=== PATIENT | male | born 1945 | race Hispanic/Latino ===

== ENCOUNTER 2017-04-20 21:12 | Inpatient (IN) | payer MEDICARE ==
[~2017-04-20] VITALS: Ht 175.3 cm; Wt 129.4 kg
[~2017-04-20 21:12] MED LIST: ASPIRIN81 MG PO; CARVEDILOL3.125 MG PO; CIPRO500 MG PO; FENOFIBRATE67 MG PO; LISINOPRIL10 MG PO; PLAVIX75 MG PO
[2017-04-20 21:24] VITALS: BP 113/70
[2017-04-20 21:30] VITALS: BP 113/70
[2017-04-20] MEDS ORDERED: ASPIRIN 81 MG CHEW TAB PO ONE (22:00)
[2017-04-20] MEDS ORDERED: MAALOX/LIDOCAINE/BENADRYL 120 ML BTL PO PRN (22:30)
[2017-04-20] MEDS ORDERED: ENOXAPARIN SODIUM INJ 100 MG/ML SYR SC SCH (22:30)
[2017-04-20 23:29] LABS: CREATINE KINASE MB 5.4 ng/mL (0.00-5.00); TROPONIN I 0.338 ng/mL (0-0.300)
[2017-04-21] VITALS (43 sets, daily range): BP systolic 89–129; BP diastolic 57–83
[2017-04-21] MEDS: MORPHINE SULFATE 2 MG/ML SYR IV PRN ×2 (01:07→13:37)
[2017-04-21 07:23] LABS: BASOPHILS % 0.6 % (0.0-1.0); EOSINOPHILS # (AUTO) 0.1 (0.0-0.4); EOSINOPHILS % 0.7 % (0.0-6.0); HEMATOCRIT 39.4 % (38.2-49.6); HEMOGLOBIN 13.2 g/dL (14.0-18.0); LYMPHOCYTES # (AUTO) 1.7 (1.0-3.2); LYMPHOCYTES % 24.4 % (18.0-39.1); MEAN CORPUSCULAR HEMOGLOBIN 29.5 pg (28-32); MEAN CORPUSCULAR HGB CONC 33.5 g/dL (31-35); MEAN CORPUSCULAR VOLUME 88.1 fL (81-99); MONOCYTES # (AUTO) 0.6 (0.2-0.8); MONOCYTES % 8.9 % (4.4-11.3); NEUTROPHILS # (AUTO) 4.6 (2.1-6.9); NEUTROPHILS % 64.8 % (38.7-80.0); PLATELET COUNT 158 x10e3/uL (140-360); RED BLOOD COUNT 4.47 x10e6/uL (4.3-5.7); RED CELL DISTRIBUTION WIDTH 13.5 % (11.7-14.4)
[2017-04-21 07:45] LABS: ALANINE AMINOTRANSFERASE 21 IU/L (0-55); ALBUMIN 3.9 g/dL (3.5-5.0); ALBUMIN/GLOBULIN RATIO 1.2 (0.8-2.0); ALKALINE PHOSPHATASE 46 IU/L (40-150); ANION GAP 10.4 mmol/L (8-16); BLOOD UREA NITROGEN 13 mg/dL (7-26); BUN/CREATININE RATIO 14 (6-25); CARBON DIOXIDE 28 mmol/L (22-29); CHLORIDE 105 mmol/L (98-107); CHOL/HDL RATIO 4.6 (3.9-4.7); CHOLESTEROL 152 MD/DL (0-199); CREATINE KINASE 385 IU/L (30-200); CREATININE, SERUM 0.95 mg/dL (0.72-1.25); EST GLOMERULAR FILTRATION RATE > 60 ML/MIN (60-); GLUCOSE 113 mg/dL (74-118); HDL CHOLESTEROL 33 MG/DL (40-60); LDL CHOLESTEROL 75 MG/DL (60-130); POTASSIUM 4.4 mmol/L (3.5-5.1); SODIUM 139 mmol/L (136-145); TRIGLYCERIDES 218 MG/DL (0-149)
[2017-04-21 08:00] LABS: TROPONIN I 2.806 ng/mL (0-0.300)
[2017-04-21 08:35] LABS: PARTIAL THROMBOPLASTIN TIME 34.9 seconds (23.8-35.5)
[2017-04-21 08:50] LABS: INR 1.14; PROTHROMBIN TIME 15.2 seconds (11.9-14.5)
[2017-04-21] MEDS: ASPIRIN 81 MG CHEW TAB PO SCH (08:57)
[2017-04-21] MEDS: NITROGLYCERIN 0.4 MG SUBL SL PRN ×2 (08:57→09:03)
[2017-04-21] MEDS: LISINOPRIL 10 MG TAB PO SCH (09:00)
[2017-04-21] MEDS ORDERED: FENOFIBRATE 145 MG TAB PO SCH (09:00)
[2017-04-21] MEDS: CARVEDILOL 3.125 MG TAB PO SCH ×2 (09:00→17:00)
[2017-04-21] MEDS ORDERED: NON-FORMULARY MEDICATION (Fenofibrate,Micronized (Fenofibrate) 160 MG) PO SCH (09:00)
[2017-04-21] MEDS: SODIUM CHLORIDE 0.9% 1000ML 1,000 ML IV SCH ×2 (09:05→19:00)
[2017-04-21] MEDS ORDERED: FENTANYL CITRATE/PF 100MCG/2 ML INJ ONE (09:45)
[2017-04-21] MEDS ORDERED: HEPARIN SOD (PORCINE) 1000 UNIT/ML 30ML ONE (09:45)
[2017-04-21] MEDS ORDERED: IOPAMIDOL 370 MG/ML 200 ML INFUS..BTL INJ ONE ×2 (09:46→10:50)
[2017-04-21] MEDS ORDERED: MIDAZOLAM HCL 2 MG/2 ML VIAL ONE (09:46)
[2017-04-21] MEDS ORDERED: HEPARIN SOD/SOD CHLORIDE 2,000 ML ONE (09:46)
[2017-04-21] MEDS ORDERED: LIDOCAINE HCL 2% LOCAL 20 ML VIAL ONE (09:46)
[2017-04-21] MEDS ORDERED: NITROGLYCERIN/D5W 200 MCG/ML 250 ML ONE (09:46)
[2017-04-21] MEDS ORDERED: SODIUM CHLORIDE 0.9% 1000ML 1,000 ML ONE (09:46)
[2017-04-21] MEDS ORDERED: BIVALIRUDIN 250 MG/VIAL IV ONE (10:21)
[2017-04-21] MEDS ORDERED: SODIUM CHLORIDE 0.9% 50ML 0 ML ONE (10:21)
--- NOTE | 2017-04-21 10:53 | History and Physical ---
CHIEF COMPLAINT: Chest pain. HISTORY OF PRESENT ILLNESS: Mr. Guerrero is a 71-year-old male with a history of hypertension, dyslipidemia, morbid obesity, coronary artery disease status post aortocoronary bypass with known occluded SALOMON to LAD and occluded SVG to RCA, status post SVG-to-OM drug-eluting stent PCI in 2015, who presents with crescendo angina pectoris. He was observed in a freestanding emergency department where initial set of enzymes was negative. EKG with right bundle-branch block. He was transferred for further evaluation. He was initiated on ACS protocol. In the hospital, additional sets of enzymes have ruled him in. He has had recurrent bouts of chest discomfort and some dynamic ST depressions in inferior and lateral leads for which the corn lab technician is being activated for expedited coronary angiography and possible intervention. All indications, alternatives, risks and benefits have been discussed extensively with the patient as well as family members. The patient agrees to proceed with this plan of care. REVIEW OF SYSTEMS: Negative, except as noted above. ALLERGIES: NO KNOWN DRUG ALLERGIES. PAST MEDICAL HISTORY: As per HPI. SOCIAL HISTORY: Negative times 3. PHYSICAL EXAMINATION VITAL SIGNS: Temperature 97.3, heart rate 60, respiratory rate 20, blood pressure 101/60. O2 sat is 96% on room air. GENERAL: No acute distress. Alert. Active. NECK: No JVD. CHEST: Clear to auscultation. CARDIOVASCULAR: Regular rate and rhythm, normal S1 and S2. ABDOMEN: Soft. Nontender and nondistended. Obese. EXTREMITIES: Trace edema of bilateral lower extremities. LABS: Reviewed. Creatinine at [facility] ER was 1.5, now down to 0.95. Serial enzymes peaking at CK-MB 42, CK 385, troponin I 2.8. TSH within normal limits. LDL 75, HDL 33, total cholesterol 152, triglycerides 218. Potassium 4.4, bicarbonate 28, sodium 139. INR 1.1. Hemoglobin 13, white blood cells 7, platelets 158. EKG as described above. Chest x-ray shows no acute thoracic abnormality with mediastinal clips and sternotomy sutures noted. ASSESSMENT: High-risk xzh-BJ-kvlomqpew myocardial infarction in a patient with known coronary artery disease, prior bypass, prior occluded grafts and prior stent, saphenous vein graft to obtuse marginal. RECOMMENDATIONS: Proceed with expedited coronary angiography and/or graft intervention. Further recommendations to follow. Continue aggressive medical optimization for ACS, on aspirin and nitroglycerin p.r.n., carvedilol and lisinopril. Further recommendations to follow. Echo ordered and pending. IV fluids initiated. The patient is currently n.p.o. Job#: [id number]
[2017-04-21] MEDS ORDERED: ADENOSINE 3MG/1ML 30ML VIAL ONE (11:12)
[2017-04-21] MEDS ORDERED: ADENOSINE 6MG/2ML 1 ML ONE (11:12)
[2017-04-21] MEDS ORDERED: SODIUM CHLORIDE 0.9% 50ML 50 ML ONE (11:13)
[2017-04-21] MEDS ORDERED: SODIUM CHLORIDE 0.9% 250ML 250 ML ONE (11:22)
[2017-04-21] MEDS ORDERED: ASPIRIN 325 MG TAB ONE (11:36)
[2017-04-21] MEDS ORDERED: CLOPIDOGREL BISULFATE 75 MG TAB ONE (11:36)
[2017-04-21] MEDS ORDERED: NITROGLYCERIN/D5W 200 MCG/ML 250 ML IV STA (12:00)
[2017-04-21] MEDS ORDERED: ACETAMINOPHEN 325 MG TAB PO PRN (12:00)
[2017-04-21] MEDS ORDERED: ONDANSETRON HCL INJ 2 MG/ML VIAL IV PRN (12:00)
[2017-04-21] MEDS ORDERED: MORPHINE SULFATE 4 MG/ML SYR IV PRN (12:00)
[2017-04-21] MEDS ORDERED: MORPHINE SULFATE 5 MG/ML VIAL IV PRN (12:15)
[2017-04-21] MEDS ORDERED: HEPARIN SOD (PORCINE) 5,000 UNIT/ML VIAL IV ONE (12:30)
[2017-04-21] MEDS: HEPARIN 25,000U/0.45% NS 250ML 1,000 UNIT in SODIUM CHLORIDE 0.9% 250ML 0 ML IV SCH (16:00)
[2017-04-22] VITALS (93 sets, daily range): BP systolic 73–135; BP diastolic 44–85
[2017-04-22] MEDS: SODIUM CHLORIDE 0.9% 1000ML 1,000 ML IV SCH ×2 (04:32→14:35)
[2017-04-22 05:44] LABS: BASOPHILS % 0.5 % (0.0-1.0); EOSINOPHILS % 0.3 % (0.0-6.0); HEMATOCRIT 38.3 % (38.2-49.6); HEMOGLOBIN 13.1 g/dL (14.0-18.0); LYMPHOCYTES # (AUTO) 1.3 (1.0-3.2); LYMPHOCYTES % 15.3 % (18.0-39.1); MEAN CORPUSCULAR HEMOGLOBIN 29.9 pg (28-32); MEAN CORPUSCULAR HGB CONC 34.2 g/dL (31-35); MEAN CORPUSCULAR VOLUME 87.4 fL (81-99); MONOCYTES # (AUTO) 0.9 (0.2-0.8); MONOCYTES % 10.8 % (4.4-11.3); NEUTROPHILS # (AUTO) 6.3 (2.1-6.9); NEUTROPHILS % 72.6 % (38.7-80.0); PLATELET COUNT 124 x10e3/uL (140-360); RED BLOOD COUNT 4.38 x10e6/uL (4.3-5.7); RED CELL DISTRIBUTION WIDTH 13.7 % (11.7-14.4)
[2017-04-22 06:04] LABS: ANION GAP 13.8 mmol/L (8-16); BLOOD UREA NITROGEN 12 mg/dL (7-26); BUN/CREATININE RATIO 15 (6-25); CALCIUM 8.5 mg/dL (8.4-10.2); CARBON DIOXIDE 24 mmol/L (22-29); CHLORIDE 102 mmol/L (98-107); EST GLOMERULAR FILTRATION RATE > 60 ML/MIN (60-); GLUCOSE 115 mg/dL (74-118); POTASSIUM 3.8 mmol/L (3.5-5.1); SODIUM 136 mmol/L (136-145)
[2017-04-22] MEDS: ASPIRIN 81 MG CHEW TAB PO SCH (08:44)
[2017-04-22] MEDS: LISINOPRIL 10 MG TAB PO SCH (08:47)
[2017-04-22] MEDS: CLOPIDOGREL BISULFATE 75 MG TAB PO SCH (09:00)
[2017-04-22] MEDS: ISOSORBIDE MONONITRATE 30 MG TAB CR PO SCH (09:00)
[2017-04-22] MEDS: CARVEDILOL 3.125 MG TAB PO SCH ×2 (09:00→17:00)
--- NOTE | 2017-04-22 10:53 | Progress Note ---
DATE: April 22, 2017 CARDIOLOGY PROGRESS NOTE SUBJECTIVE: Had epigastric discomfort overnight. Now minimal, 2/. No other complaints. OBJECTIVE VITALS: Temperature at 97.4, heart rate 65, respiratory rate 16, blood pressure 102/68. O2 sat 96% on room air. GENERAL: No acute distress. Alert. NECK: No JVD. CHEST: Clear to auscultation. CARDIOVASCULAR: Regular rate and rhythm. Normal S1 and S2. No S3, no S4. ABDOMEN: Soft. EXTREMITIES: Trace edema. CARDIOVASCULAR MEDICATIONS 1. On IV heparin. 2. On nitroglycerin drip. 3. Aspirin 81 mg daily. 4. Fenofibrate 145 mg daily. 5. Carvedilol 12.5 mg b.i.d. 6. Lisinopril 5 mg daily. 7. Atorvastatin 80 mg nightly. 8. Clopidogrel 75 mg daily. STUDIES: White blood cells 8.6, hemoglobin 13.1, platelets 124. INR 1.1. PTT 46. Sodium 136, potassium 3.8, chloride 102, bicarbonate 24, BUN 12, creatinine 0.8. Glucose 115. Calcium 8.5. Yesterday's most recent enzymes were CK 385, CK-MB 42, and troponin I was 2.8. Today's cardiac enzymes are pending. Triglycerides were 218, total cholesterol 152, LDL 75, HDL 33 with TSH 2.5. TELEMETRY: Sinus rhythm with occasional PACs. ASSESSMENT 1. Ebs-OD-lomhuislw myocardial infarction in the setting of occluded saphenous vein graft to obtuse marginal, status post percutaneous coronary intervention, however with severe distal outflow thrombus burden preintervention, which persists post intervention. 2. Morbid obesity. 3. Mixed dyslipidemia. 4. Hypertension. RECOMMENDATIONS: Keep in ICU today. Continue IV heparin and wean nitroglycerin. Add Imdur. Continue dual antiplatelet therapy and atorvastatin. Discontinue fenofibrate. Job#: [id number]
[2017-04-22] MEDS: HEPARIN 25,000U/0.45% NS 250ML 1,000 UNIT in SODIUM CHLORIDE 0.9% 250ML 0 ML IV SCH (12:00)
[2017-04-22] MEDS ORDERED: HEPARIN 25,000U/0.45% NS 250ML 250 ML ONE (13:08)
[2017-04-22 13:23] LABS: CREATINE KINASE MB 135.8 ng/mL (0.00-5.00)
[2017-04-22 13:26] LABS: TROPONIN I 15.782 ng/mL (0-0.300)
--- NOTE | 2017-04-22 13:45 | Operative Report ---
DATE OF PROCEDURE: April 20, 2017 PROCEDURES PERFORMED 1. Left heart catheterization. 2. Selective coronary angiography. 3. Selective graft to obtuse marginal angiography. 4. Percutaneous coronary intervention of saphenous vein graft to obtuse marginal as well as Pronto manual thrombectomy of the saphenous vein graft to obtuse marginal as well as adenosine intracoronary via the saphenous vein graft to obtuse marginal administration. 5. Right common femoral artery 6-Citizen [place] Angio-Seal closure. PROCEDURE INDICATIONS: Rhb-IX-gkjntyaeg myocardial infarction with refractory angina in spite of medical therapy. PROCEDURE ESTIMATED BLOOD LOSS: Less than 15 mL. PROCEDURE COMPLICATIONS: None. However, high thrombus burden outflow problem with LINH-0 flow in the coronary cowlitz vessels distal to the graft preprocedure with significant residual high thrombus burden post procedure in spite of maneuvers performed was observed. PROCEDURE SUMMARY: After consent was obtained, the patient was prepped and draped in a sterile fashion. Right femoral site was locally infiltrated with 2% lidocaine. Access was obtained with the micropuncture kit. A short 6-Citizen [place] sheath was placed. All catheters were railed with a leading wire to their respective positions. A JL5, 6-Citizen [place] catheter was used for engagement of the left coronary artery. A JR4, 6-Citizen [place] catheter was used for engagement of the right coronary artery as well as SVG to OM. A 6-[place]izen [place] JR4 guide catheter with no side-holes was used for the interventional portion of this procedure along with EV3 SpiderFX 5-mm embolic protection device, [employer] Synergy 3.0 x 24 drug-eluting stent, a Runthrough wire as well as Pronto thrombectomy catheter were used for the interventional portion of the procedure. Heparin was administered to maintain ACT within therapeutic range. Aspirin and clopidogrel preload were also administered. ANGIOGRAPHIC FINDINGS 1. Left main has luminal irregularities and gives LAD and circumflex. 2. LAD has mild disease, less than 30%, throughout the proximal to mid portion. It gives diagonals and septal perforators of small caliber. The apical-most segment of the distal LAD is 100% occluded. This was described to be occluded on previous angiography in 2015. Of note, collaterals from the LAD to the septal perforators fill the RPDA. These are grade-3 collaterals. 3. The circumflex gives a high takeoff obtuse marginal, which has small to medium caliber and an area of mid-portion 30% stenosis. The circumflex itself is occluded 100% distal to this high takeoff of the 1st obtuse marginal. 4. The right coronary artery is 100% occluded with known chronic total occlusion. 5. The SALOMON to LAD is occluded per 2015 cardiac catheterization, and a graft to RCA is also described to be occluded on previous catheterization. 6. SVG to obtuse marginal was dilated and was noted to have a 95% mid stenosis with LINH-1 flow at the proximal to mid graft level. The distal portion of the graft was, however, 100% occluded with high thrombus burden and contrast staining in the myocardium. Due to active persistent chest pain, it was felt that attempted intervention of the graft was worth pursuing, and this was performed as follows: SpiderFX 5.0 embolic protection device was deployed distal to the area of stenosis. Primary stenting with a Synergy 3.0 x 24 drug-eluting stent was deployed in the area of critical graft stenosis. After retrieval of the embolic protection device, Pronto thrombectomy was performed on various passages, particularly towards the distal segment of the graft and into the proximal portion of the cowlitz vessel. In addition, adenosine intracoronary was administered in various doses of 100 mcg. Preprocedure mid-graft stenosis was 95%. Post procedure was less than 30% residual stenosis. Preprocedure LINH flow across the graft was LINH 1 as well as LINH 0 in the cowlitz OM vessel. Post procedure LINH flow remained LINH 1 with LINH 0 and dye staining in the cowlitz vessel in the setting of high thrombus burden. At this point, it was felt that additional interventional options were exhausted, and continued medical therapy with heparin, aspirin and Plavix was pursued in the intensive care unit. The procedure was, therefore, completed. Angio-Seal closure of the right common femoral artery was applied. CONCLUSIONS: Saphenous vein graft to obtuse marginal percutaneous coronary intervention with suboptimal result in the setting of high thrombus burden noted preprocedure and in spite of manual thrombectomy with adenosine intracoronary, poor outflow limited results. RECOMMENDATIONS: Pursue additional dual antiplatelet therapy and heparin-based therapy. Nitroglycerin drip to titrate for anginal control. Beta katie, statin, ICU care. Overall guarded prognosis. Job#: [id number]
[2017-04-22 16:47] LABS: CREATINE KINASE MB 89.7 ng/mL (0.00-5.00)
[2017-04-22 16:49] LABS: TROPONIN I 21.538 ng/mL (0-0.300)
[2017-04-22] MEDS ORDERED: MAGNESIUM HYDROXIDE 30 ML UDC PO PRN (18:00)
[2017-04-22] MEDS: ATORVASTATIN 20 MG TAB PO SCH (21:17)
[2017-04-22] MEDS: SENNOSIDES 8.6 MG TAB PO SCH (21:17)
[2017-04-23] VITALS (63 sets, daily range): BP systolic 77–128; BP diastolic 41–92
[2017-04-23] MEDS: SODIUM CHLORIDE 0.9% 1000ML 1,000 ML IV SCH ×2 (01:04→11:48)
[2017-04-23 05:47] LABS: BASOPHILS % 0.2 % (0.0-1.0); EOSINOPHILS % 0.2 % (0.0-6.0); HEMATOCRIT 34.2 % (38.2-49.6); HEMOGLOBIN 11.5 g/dL (14.0-18.0); LYMPHOCYTES # (AUTO) 1.5 (1.0-3.2); MEAN CORPUSCULAR HEMOGLOBIN 29.9 pg (28-32); MEAN CORPUSCULAR HGB CONC 33.6 g/dL (31-35); MEAN CORPUSCULAR VOLUME 88.8 fL (81-99); MONOCYTES # (AUTO) 1.1 (0.2-0.8); MONOCYTES % 11.9 % (4.4-11.3); NEUTROPHILS # (AUTO) 6.7 (2.1-6.9); NEUTROPHILS % 71.4 % (38.7-80.0); PLATELET COUNT 97 x10e3/uL (140-360); RED BLOOD COUNT 3.85 x10e6/uL (4.3-5.7)
[2017-04-23 06:08] LABS: ANION GAP 11.8 mmol/L (8-16); BLOOD UREA NITROGEN 20 mg/dL (7-26); BUN/CREATININE RATIO 20 (6-25); CALCIUM 8.4 mg/dL (8.4-10.2); CARBON DIOXIDE 24 mmol/L (22-29); CHLORIDE 104 mmol/L (98-107); CREATINE KINASE 945 IU/L (30-200); CREATININE, SERUM 1.01 mg/dL (0.72-1.25); EST GLOMERULAR FILTRATION RATE > 60 ML/MIN (60-); GLUCOSE 116 mg/dL (74-118); MAGNESIUM 2.2 MG/DL (1.3-2.1); POTASSIUM 3.8 mmol/L (3.5-5.1); SODIUM 136 mmol/L (136-145)
[2017-04-23] MEDS: CARVEDILOL 3.125 MG TAB PO SCH ×2 (09:00→17:59)
[2017-04-23] MEDS: ISOSORBIDE MONONITRATE 30 MG TAB CR PO SCH (09:00)
[2017-04-23] MEDS: LISINOPRIL 10 MG TAB PO SCH (09:00)
[2017-04-23] MEDS: ASPIRIN 81 MG CHEW TAB PO SCH (09:21)
[2017-04-23] MEDS: CLOPIDOGREL BISULFATE 75 MG TAB PO SCH (09:21)
--- NOTE | 2017-04-23 18:27 | Progress Note ---
DATE: April 23, 2017 CARDIOLOGY PROGRESS NOTE SUBJECTIVE: The patient denies chest pain or shortness of breath. OBJECTIVE VITAL SIGNS: Temperature 98.1 degrees, pulse 70, respiratory rate 18, blood pressure 96/61, oxygen saturation 97% on room air. GENERAL: Awake, alert and in no acute distress. LUNGS: Clear to auscultation bilaterally. No wheezes or crackles. CARDIOVASCULAR: Normal rate, regular rhythm. No murmurs. Normal S1 and S2. ABDOMEN: Soft and nontender. EXTREMITIES: Trace edema. CARDIAC MEDICATIONS: 1. Clopidogrel 75 mg p.o. daily. 2. Aspirin 81 mg p.o. daily. 3. Atorvastatin 80 mg p.o. nightly. 4. Isosorbide mononitrate 30 mg p.o. daily. 5. Carvedilol 12.5 mg p.o. daily. 6. Lisinopril 5 mg p.o. daily. LABORATORY DATA: WBC 9.3, hemoglobin 11.5, hematocrit 34.2, platelets 97,000. Sodium 136, potassium 3.8, chloride 104, CO2 of 24, BUN 20, creatinine 1.01. Troponin 22.7. TELEMETRY: Normal sinus rhythm. IMPRESSION 1. Non-ST elevation myocardial infarction in the setting of occluded saphenous vein graft to obtuse marginal, status post percutaneous coronary intervention; however, with severe distal outflow thrombus burden per intervention which persisted post intervention. 2. Morbid obesity. 3. Mixed dyslipidemia. 4. Hypertension. 5. Coronary artery disease with occluded SALOMON to left anterior descending and saphenous vein graft to right coronary artery as well as 100% distal left anterior descending, 100% right coronary artery chronic total occlusion and 100% distal circumflex occlusion. RECOMMENDATIONS: Continue IV heparin drip. Transfer out of ICU. Continue dual antiplatelet therapy. Continue current cardiac medications, otherwise. Continue monitoring on telemetry. Job#: [id number]
[2017-04-23] MEDS ORDERED: HEPARIN 25,000U/0.45% NS 250ML 250 ML IV SCH (18:30)
[2017-04-23] MEDS ORDERED: HEPARIN 25,000U/0.45% NS 250ML 250 ML ONE (18:57)
[2017-04-23] MEDS: SENNOSIDES 8.6 MG TAB PO SCH (21:40)
[2017-04-23] MEDS: ATORVASTATIN 20 MG TAB PO SCH (21:40)
[2017-04-24 00:25] VITALS: BP 90/64
[2017-04-24 05:58] VITALS: BP 94/66
[2017-04-24 06:33] LABS: BASOPHILS % 0.2 % (0.0-1.0); EOSINOPHILS % 0.2 % (0.0-6.0); HEMATOCRIT 32.7 % (38.2-49.6); LYMPHOCYTES # (AUTO) 1.2 (1.0-3.2); LYMPHOCYTES % 13.7 % (18.0-39.1); MEAN CORPUSCULAR HEMOGLOBIN 29.8 pg (28-32); MEAN CORPUSCULAR HGB CONC 33.6 g/dL (31-35); MEAN CORPUSCULAR VOLUME 88.6 fL (81-99); MONOCYTES % 11.4 % (4.4-11.3); NEUTROPHILS # (AUTO) 6.6 (2.1-6.9); NEUTROPHILS % 73.8 % (38.7-80.0); PLATELET COUNT 85 x10e3/uL (140-360); RED BLOOD COUNT 3.69 x10e6/uL (4.3-5.7); RED CELL DISTRIBUTION WIDTH 13.7 % (11.7-14.4)
[2017-04-24 07:10] LABS: TROPONIN I 28.102 ng/mL (0-0.300)
[2017-04-24 07:38] VITALS: BP 93/65
[2017-04-24] MEDS: ISOSORBIDE MONONITRATE 30 MG TAB CR PO SCH (09:00)
[2017-04-24] MEDS: LISINOPRIL 10 MG TAB PO SCH (09:00)
[2017-04-24] MEDS ORDERED: ATROPINE SULFATE 0.1 MG/ML 10ML SYR ONE (11:29)
[2017-04-24] MEDS ORDERED: ATROPINE SULFATE 1 MG/ML VIAL IV PRN (11:30)
[2017-04-24] MEDS: ASPIRIN 81 MG CHEW TAB PO SCH (12:26)
[2017-04-24] MEDS: CLOPIDOGREL BISULFATE 75 MG TAB PO SCH (12:27)
--- NOTE | 2017-04-24 12:33 | Diagnostic Imaging Report ---
PROCEDURE: A single AP view of the chest. COMPARISON: DX, CHEST 2 VIEWS, 08/19/2015, 10:41. INDICATIONS: CHEST PAIN, DYSPNEA FINDINGS: Lines/tubes: None. Lungs: The lungs are well inflated and grossly clear. There is no evidence of consolidation. Pleura: There is no pleural effusion or pneumothorax. Heart and mediastinum: Enlarged cardiac silhouette. Central pulmonary venous congestion and mild perihilar interstitial opacities Bones: No acute bony abnormality. IMPRESSION: 1. enlarged cardiac silhouette, with mild central pulmonary venous congestion and perihilar interstitial edema. No consolidation or pleural effusion. Jim Romero M.D. Dictated by: Jim Rmoero M.D. on 04/24/2017 at 12:41 Electronically approved by: Jim Romero M.D. on 04/24/2017 at 12:41
[2017-04-24 12:39] VITALS: BP 103/69
--- NOTE | 2017-04-24 12:59 | Progress Note ---
DATE: April 24, 2017 CARDIOLOGY PROGRESS NOTE SUBJECTIVE: Patient denies chest pain. However, he reports he is extremely fatigued and short of breath with walking to the bathroom. Earlier today he was noted to become bradycardic to the 40s on review of telemetry. The patient developed 2nd-degree AV block type I with episodes of 2:1 AV block. OBJECTIVE VITAL SIGNS: Temperature 97.7 degrees, pulse 68, respiratory rate 16, blood pressure 93.65, oxygen saturation 93% on room air. GENERAL: Obese gentleman in no acute distress. LUNGS: Clear to auscultation bilaterally. No wheezes or crackles. CARDIOVASCULAR: Normal rate, regular rhythm. No murmur. Normal S1 and S2. ABDOMEN: Soft, nontender. EXTREMITIES: 1+ pitting edema. CARDIAC MEDICATIONS 1. Carvedilol 12.5 mg p.o. b.i.d. 2. Plavix 75 mg p.o. daily. 3. Aspirin 81 mg p.o. daily. 4. Isosorbide mononitrate 30 mg p.o. daily. 5. Lisinopril 5 mg p.o. daily. 6. Heparin drip. 7. Atorvastatin 80 mg p.o. nightly. LABS: Troponin I, 28.102. CK-MB 21. CK 612. WBC 8.9, hemoglobin 11, hematocrit 32.7, platelets 85. TELEMETRY: Normal sinus rhythm. A 2nd-degree AV block type I with episodes of 2:1 AV block. IMPRESSION 1. Qfw-KS-efvydqyqw myocardial infarction in the setting of occluded saphenous vein graft to obtuse marginal status post percutaneous coronary intervention. However, severe distal outflow thrombus burden preintervention which persisted postintervention. 2. Second-degree atrioventricular block type I. 3. Morbid obesity. 4. Mixed dyslipidemia. 5. Hypertension. 6. Coronary artery disease with known occlusion of the left internal mammary artery to left anterior descending and saphenous vein graft to right coronary artery as well as 100% distal left anterior descending, 100% right coronary artery chronic total occlusion, and 100% distal circumflex occlusion. RECOMMENDATIONS: Continue intravenous heparin drip. Monitor in IMCU. Atropine at bedside. Transcutaneous pacer pads will be placed on patient. Continue dual antiplatelet therapy. Stop carvedilol. Given patient's dyspnea on exertion, will get a chest x-ray and BNP. Start Lasix. Job#: [id number] EV
[2017-04-24 15:21] LABS: CREATINE KINASE MB 14.1 ng/mL (0.00-5.00)
[2017-04-24 15:24] LABS: TROPONIN I 30.909 ng/mL (0-0.300)
[2017-04-24 15:36] LABS: ANION GAP 11.9 mmol/L (8-16); BLOOD UREA NITROGEN 18 mg/dL (7-26); BUN/CREATININE RATIO 18 (6-25); CALCIUM 8.6 mg/dL (8.4-10.2); CARBON DIOXIDE 25 mmol/L (22-29); CHLORIDE 104 mmol/L (98-107); CREATININE, SERUM 0.98 mg/dL (0.72-1.25); EST GLOMERULAR FILTRATION RATE > 60 ML/MIN (60-); GLUCOSE 116 mg/dL (74-118); POTASSIUM 3.9 mmol/L (3.5-5.1); SODIUM 137 mmol/L (136-145)
[2017-04-24] MEDS ORDERED: FUROSEMIDE INJ 10 MG/ML 4 ML VIAL IV STA (17:44)
[2017-04-24] MEDS ORDERED: LIDOCAINE 1% W/EPINEPHRINE 20 ML VIAL ONE (18:52)
[2017-04-24] MEDS ORDERED: FENTANYL CITRATE/PF 100MCG/2 ML INJ ONE (18:53)
[2017-04-24] MEDS ORDERED: SODIUM CHLORIDE 0.9% 1000ML 1,000 ML ONE ×2 (18:53→18:58)
[2017-04-24] MEDS ORDERED: MIDAZOLAM HCL 2 MG/2 ML VIAL ONE (18:53)
[2017-04-24] MEDS ORDERED: VANCOMYCIN 1GM/NS 250 ML 250 ML ONE (18:54)
[2017-04-24] MEDS ORDERED: LIDOCAINE HCL 2% LOCAL 20 ML VIAL ONE (19:12)
[2017-04-24] MEDS ORDERED: DOPAMINE/DEXTROSE 250 ML IV PRN (19:30)
[2017-04-24] MEDS ORDERED: FUROSEMIDE INJ 10 MG/ML 4 ML VIAL IV SCH (21:00)
[2017-04-24] MEDS ORDERED: ATORVASTATIN 40 MG TAB PO SCH (21:00)
[2017-04-25] MEDS ORDERED: HEPARIN 25,000U/0.45% NS 250ML 1,000 UNIT in SODIUM CHLORIDE 0.9% 250ML 0 ML IV SCH (00:30)
--- NOTE | 2017-04-25 01:08 | Consultation ---
DATE OF CONSULTATION: April 24, 2017 REASON FOR CONSULT: Bradycardia, second-degree AV block. HISTORY OF PRESENT ILLNESS: This is a 71-year-old gentleman with history of coronary artery disease, status post bypass surgery, who presented with acute myocardial infarction, underwent heart catheterization and medical treatment for bypass graft occlusion, patient has developed progressive cardiogenic shock with progressive shortness of breath, also significant bradycardia, severe sinus bradycardia in the 40s with episodes of second-degree type 2 AV block, the beta blockers had to be stopped. He continues to have intermittent episodes of second-degree type 2 AV block. Patient is highly symptomatic with dizziness. He feels about to pass out and very short of breath. We were consulted for consideration for pacemaker. No history of syncope. REVIEW OF SYSTEMS: CONSTITUTIONAL: Negative. CARDIOVASCULAR: As per HPI. RESPIRATORY: As per HPI. GASTROINTESTINAL: Negative. GENITOURINARY: Negative. MUSCULOSKELETAL: Negative. EYES: Negative. ENT: Negative. ALLERGY/IMMUNOLOGY: Negative. PSYCHIATRY: Negative. PAST MEDICAL HISTORY: Coronary artery disease, hypertension. SURGICAL HISTORY: Coronary bypass surgery. FAMILY HISTORY: No premature coronary artery disease. SOCIAL HISTORY: No smoking, alcohol, or illicit drugs. PHYSICAL EXAMINATION: VITAL SIGNS: Blood pressure 100/60, pulse 48, respiration 24, O2 sat is 94%. GENERAL: In no acute distress. HEENT: Moist mucous membranes. NECK: Positive for JVD. CARDIOVASCULAR: Regular rhythm. RESPIRATORY: Crackles at bases. GASTROINTESTINAL: Abdomen is soft, nontender. MUSCULOSKELETAL: 2+ distal pulses. NEUROLOGICAL: No focal deficit. SKIN: No lesions. PSYCHIATRY: Normal thought process. Normal judgment. EKG: Sinus rhythm, right bundle-branch block, episodes of second-degree type 2 AV block. IMPRESSION: Second-degree type 2 atrioventricular block, intermittent. No reversible causes, patient is also having cardiogenic shock with inappropriate bradycardic response. Highly symptomatic. RECOMMENDATIONS: I had a discussion with the patient. He has a strong indication for a pacemaker. This was discussed in detail. Patient voices understanding and wishes to proceed. Will go ahead and proceed with a dual-chamber pacemaker placement. [facility] Job#: [id number]
--- NOTE | 2017-04-25 11:57 | Operative Report ---
DATE OF PROCEDURE: April 24, 2017 REFERRING PHYSICIAN: Dr. Shankar Baer PREPROCEDURE DIAGNOSES 1. Second-degree type-2 atrioventricular block. 2. Sinus bradycardia in the setting of cardiogenic shock. No reversible causes. 3. Status post myocardial infarction. POSTPROCEDURE DIAGNOSES 1. Second-degree type-2 atrioventricular block. 2. Sinus bradycardia in the setting of cardiogenic shock. No reversible causes. 3. Status post myocardial infarction. PROCEDURES PERFORMED 1. Dual-chamber pacemaker implant. 2. Moderate sedation. Monitored conscious sedation was provided under my direct supervision by a sedation-trained nurse. Sedation time approximately 30 minutes, Versed was given. See sedation form for details. COMPLICATIONS: None. ESTIMATED BLOOD LOSS: 5 mL. DESCRIPTION OF PROCEDURE: After informed consent was obtained, patient was brought to the electrophysiology laboratory in a fasting, nonsedated state. Area over his chest was prepped and draped in the usual sterile fashion. Moderate sedation and prophylactic antibiotic were given. Lidocaine 1% was used as local anesthetic and a 3-cm skin incision was made in the left subclavicular area. Electrocautery, sharp, and blunt dissection were used to reach the muscular fascia and the pocket was created for eventual implantation of the device. Vascular access was obtained times 2 in the left axillary vein using the modified Seldinger technique under fluoroscopic guidance. Two 6-Maltese sheaths were placed. The ventricular lead advanced to the RV apex. R wave 17, pacing 0.4 at 0.5, impedance 686. The atrial lead advanced to the right atrial appendage. There were atrial fibrillation waves. Impedance 611. Sheaths were removed from the body. Leads were secured to fascia using 0-silk. Pocket was irrigated with antibiotic solution using the pulse range aide. Hemostasis was meticulous. Leads were connected to the device. The entire pacemaker system placed in the pocket. The incision was closed using Vicryl and Dermabond. Patient tolerated the procedure well. Procedure was deemed complete. SUMMARY OF NEW HARDWARE IMPLANTED 1. The new pacemaker is [employer], model #L311, [id number]. 2. The atrial lead is [employer], 1039, [id number]. 3. The ventricular lead is [employer], 9587, [id number]. IMPRESSION: Successful dual-chamber pacemaker implant via left axillary vein. PLAN 1. Routine postop monitoring in telemetry bed. 2. Chest x-ray. 3. Followup in 2 weeks. Job#: [id number] CQ
--- NOTE | 2017-05-01 17:11 | Discharge Summary ---
ADMISSION DIAGNOSIS: Ktu-TK-bmnlhfnwy myocardial infarction. DISCHARGE DIAGNOSES 1. Dox-KR-knnngjsvn myocardial infarction. 2. Cardiogenic shock. 3. Secondary type II AV block intermittent. CONSULTANTS: Electrophysiology. PROCEDURES: Cardiac catheterization; permanent pacemaker implantation. HISTORY OF PRESENT ILLNESS: This is a 71-year-old male with history of hypertension, dyslipidemia, morbid obesity, coronary artery disease, status post CABG with known occluded SALOMON to LAD and occluded SVG to RCA who presented with imb-JO-lbvkxdlfd myocardial infarction. He was taken to the cardiac catheterization lab which revealed occlusion of the SVG to OM which could not be successfully revascularized. He then developed cardiogenic shock and bradycardia for which EP was consulted for permanent pacemaker placement. He was transferred to [facility] at the [facility] on dopamine for higher level of care. MEDICATIONS: Please see discharge medications. FOLLOWUP INSTRUCTIONS: Follow up with Dr. Baer 2 weeks after discharge. CARMELA BANKS MD Job#: [id number] GH
== END 2017-04-24 20:43 | disposition short-term general hospital (02) | DRG 242 ==
LOC: MED/SURG 21:12 → ICU 04-21 12:51 → IMCU 04-23 20:00
PROVIDERS: ADMIT Internal Medicine Cardiovascular Disease; ATTEND Internal Medicine Cardiovascular Disease
PROC: 4A023N7 Measurement of Cardiac Sampling and Pressure, Left Heart, Percutaneous Approach (ICD-10-PCS; principal; 2017-04-20)
PROC: 027034Z Dilation of Coronary Artery, One Artery with Drug-eluting Intraluminal Device, Percutaneous Approach (ICD-10-PCS; 2017-04-20)
PROC: B2011ZZ Plain Radiography of Multiple Coronary Arteries using Low Osmolar Contrast (ICD-10-PCS; 2017-04-20)
PROC: B2051ZZ Plain Radiography of Left Heart using Low Osmolar Contrast (ICD-10-PCS; 2017-04-20)
PROC: 0JH606Z Insertion of Pacemaker, Dual Chamber into Chest Subcutaneous Tissue and Fascia, Open Approach (ICD-10-PCS; 2017-04-22)
PROC: 02HL3JZ Insertion of Pacemaker Lead into Left Ventricle, Percutaneous Approach (ICD-10-PCS; 2017-04-22)
PROC: 02H63JZ Insertion of Pacemaker Lead into Right Atrium, Percutaneous Approach (ICD-10-PCS; 2017-04-22)
DX: I21.4 Non-ST elevation (NSTEMI) myocardial infarction (principal); R57.0 Cardiogenic shock; I25.82 Chronic total occlusion of coronary artery; I11.9 Hypertensive heart disease without heart failure; I44.1 Atrioventricular block, second degree; I25.810 Atherosclerosis of coronary artery bypass graft(s) without angina pectoris; E66.01 Morbid (severe) obesity due to excess calories; I25.10 Atherosclerotic heart disease of native coronary artery without angina pectoris; Z95.1 Presence of aortocoronary bypass graft; E78.5 Hyperlipidemia, unspecified
CPT/HCPCS: 36140; 36415; 37242; 71010; 77002; 80048; 80053; 80061; 82550; 82553; 82948; 83036; 83735; 83880; 84443; 84484; 85025; 85610; 85730; 92973; 93005; 93306; 93459; C1898; C9600; J0153; J0583; J1265; J1644; J1650; J1940; J2001; J2250; J2270; J3370; J7030; J7050; Q9967

== ENCOUNTER 2018-05-17 13:23 | Observation (INO) | payer MEDICARE ==
[2018-05-16 16:25] LABS: BASOPHILS % 0.4 % (0.0-1.0); EOSINOPHILS % 0.4 % (0.0-6.0); HEMATOCRIT 41.3 % (38.2-49.6); HEMOGLOBIN 13.6 g/dL (14.0-18.0); LYMPHOCYTES # (AUTO) 2.5 (1.0-3.2); MEAN CORPUSCULAR HEMOGLOBIN 28.6 pg (28-32); MEAN CORPUSCULAR HGB CONC 32.9 g/dL (31-35); MEAN CORPUSCULAR VOLUME 86.8 fL (81-99); MONOCYTES # (AUTO) 0.6 (0.2-0.8); MONOCYTES % 8.2 % (4.4-11.3); NEUTROPHILS % 55.6 % (38.7-80.0); PLATELET COUNT 133 x10e3/uL (140-360); RED BLOOD COUNT 4.76 x10e6/uL (4.3-5.7); RED CELL DISTRIBUTION WIDTH 14.5 % (11.7-14.4)
[2018-05-16 16:35] LABS: INR 0.96; PROTHROMBIN TIME 13.7 seconds (11.9-14.5)
[2018-05-16 16:45] LABS: ALANINE AMINOTRANSFERASE 17 IU/L (0-55); ALBUMIN 3.8 g/dL (3.5-5.0); ALBUMIN/GLOBULIN RATIO 1.3 (0.8-2.0); ALKALINE PHOSPHATASE 62 IU/L (40-150); ANION GAP 13.3 mmol/L (8-16); BLOOD UREA NITROGEN 14 mg/dL (7-26); BUN/CREATININE RATIO 16 (6-25); CALCIUM 8.9 mg/dL (8.4-10.2); CARBON DIOXIDE 25 mmol/L (22-29); CHLORIDE 102 mmol/L (98-107); CHOL/HDL RATIO 2.6 (3.9-4.7); CHOLESTEROL 123 MD/DL (0-199); EST GLOMERULAR FILTRATION RATE > 60 ML/MIN (60-); GLUCOSE 96 mg/dL (74-118); HDL CHOLESTEROL 48 MG/DL (40-60); LDL CHOLESTEROL 35 MG/DL (60-130); POTASSIUM 4.3 mmol/L (3.5-5.1); SODIUM 136 mmol/L (136-145); TRIGLYCERIDES 199 MG/DL (0-149)
[2018-05-17] VITALS (7 sets, daily range): BP systolic 101–151; BP diastolic 54–82
[~2018-05-17] VITALS: Ht 177.8 cm; Wt 120.7 kg
[~2018-05-17 13:23] MED LIST changes: +ASPIR 8181 MG PO; +ATORVASTATIN CA20 MG PO; +ELIQUIS PO; +ENTRESTO PO; +METOPROLOL SUCC25 MG PO
--- OUTSIDE RECORDS SUMMARY | 2018-05-17 13:25 | XMS REPORT | Clinical Summary ---
Author Author [facility] Address Unknown Phone Unavailable Care Team Providers Care Dormitory Supervisor Name Role Phone Reshma Rubio MD PCP Unavailable Allergies No Known Allergies Medications End Date Status Medication Sig Dispensed Refills Start Date Active sacubitril-valsartan Take 1 tablet 60 tablet 5 (ENTRESTO) 24-26 mg Tab by mouth 2 7 (two) times daily. 05/01/2018 aspirin 81 MG EC tablet Take 1 tablet 90 tablet 3 (81 mg total) 7 by mouth daily. 05/01/2018 atorvastatin (LIPITOR) 80 Take 1 tablet 90 tablet 3 MG tablet (80 mg total) 7 by mouth nightly. 05/01/2018 bumetanide (BUMEX) 2 MG Take 1 tablet 90 tablet 3 tablet (2 mg total) 7 by mouth daily. 05/01/2018 clopidogrel (PLAVIX) 75 Take 1 tablet 90 tablet 3 mg tablet (75 mg total) 7 by mouth daily. 05/01/2018 metoprolol (TOPROL-XL) 25 Take 1 tablet 90 tablet 3 MG 24 hr tablet (25 mg total) 7 by mouth daily. Active Problems Problem Noted Date NSTEMI (non-ST elevated myocardial infarction) 04/24/2017 Cardiogenic shock 04/24/2017 Hypertension 04/24/2017 Hyperlipidemia 04/24/2017 Acute on chronic systolic heart failure Respiratory insufficiency Acute pulmonary edema LEODAN (obstructive sleep apnea) Family History Medical History Relation Name Comments No Known Problem Mother Relation Name Status Comments Mother Social History Date Tobacco Use Types Packs/Day Years Used Never Smoker Smokeless Tobacco: Never Used Alcohol Use Drinks/Week oz/Week Comments No Sex Assigned at Date Recorded Not on file Industry Job Start Date Occupation Not on file Not on file Not on file Travel End Travel History Travel Start No recent travel history available. Last Filed Vital Signs Not on file Plan of Treatment Not on file Procedures Comments Procedure Name Priority Date/Time Associated Diagnosis ARRYTHMIA IMPLANT REPORT 02/23/2018 - SCAN 7:30 AM CDT after 05/16/2017 Results * ARRYTHMIA IMPLANT REPORT - SCAN (02/23/2018 7:30 AM CDT) Narrative Performed At after 05/16/2017 Insurance Payer Benefit Subscriber ID Type Phone Address Plan / Group MEDICARE MEDICARE A xxxxxxxxxx Medicare B Advance Directives For more information, please contact: [facility] [address] [place] [address] Date Inactivated Comments Code Status Date Activated 05/01/2017 2:11 PM Full Code 04/25/2017 10:13 AM This code status was determined by: Patient
--- OUTSIDE RECORDS SUMMARY | 2018-05-17 13:26 | XMS REPORT ---
Author Author [facility] Address Unknown Phone Unavailable Care Team Providers Care Supplies Packer Name Role Phone Eleonora BABB Unavailable Unavailable Margarito ROBERT Unavailable Unavailable Problems This patient has no known problems. Allergies, Adverse Reactions, Alerts This patient has no known allergies or adverse reactions. Medications This patient has no known medications. Results Test Description Test Time Test Comments Text Results Atomic Results Result Comments POCT-GLUCOSE METER 2017-05-01 08:30:00 POC-GLUCOSE METER (BEAKER) (test qeyj=2360) 101 mg/dL 70-110 TESTED AT [address] [address] POCT-GLUCOSE [id number] 21:05:00* Test Item Value Reference Range Comments POC-GLUCOSE METER (BEAKER) (test cneb=5295) 105 mg/dL 70-110 TESTED AT [address] [address] POCT-GLUCOSE [id number] 17:32:00* Test Item Value Reference Range Comments POC-GLUCOSE METER (BEAKER) (test ocst=2036) 115 mg/dL 70-110 TESTED AT [address] [address] POCT-GLUCOSE [id number] 11:42:00* Test Item Value Reference Range Comments POC-GLUCOSE METER (BEAKER) (test ltqs=8125) 117 mg/dL 70-110 TESTED AT [address] [address] POCT-GLUCOSE [id number] 07:46:00* Test Item Value Reference Range Comments POC-GLUCOSE METER (BEAKER) (test izqm=8701) 106 mg/dL 70-110 TESTED AT [address] [address] BASIC METABOLIC [id number] 07:04:00* Test Item Value Reference Range Comments SODIUM (BEAKER) (test ycoo=511) 136 meq/L 136-145 POTASSIUM (BEAKER) (test zewz=901) 3.8 meq/L 3.5-5.1 CHLORIDE (BEAKER) (test fhiz=629) 100 meq/L 98-107 CO2 (BEAKER) (test iins=681) 27 meq/L 22-29 BLOOD UREA NITROGEN (BEAKER) (test ighj=519) 20 mg/dL 7-21 CREATININE (BEAKER) (test glbo=022) 0.84 mg/dL 0.57-1.25 GLUCOSE RANDOM (BEAKER) (test sevf=826) 99 mg/dL 70-105 CALCIUM (BEAKER) (test roet=980) 8.6 mg/dL 8.4-10.2 EGFR (BEAKER) (test nond=5517) mL/min/1.73 sq m INSUFFICIENT CLINICAL DATA TO CALCULATE ESTIMATED GFR. POCT-GLUCOSE [id number] 06:51:00* Test Item Value Reference Range Comments POC-GLUCOSE METER (BEAKER) (test ztif=8272) 127 mg/dL 70-110 TESTED AT [facility] [address] [facility] [address] CBC W/PLT COUNT & AUTO [id number] 06:28:00* Test Item Value Reference Range Comments WHITE BLOOD CELL COUNT (BEAKER) (test rewi=992) 7.8 K/ L 3.5-10.5 RED BLOOD CELL COUNT (BEAKER) (test anbh=935) 3.49 M/ L 4.63-6.08 HEMOGLOBIN (BEAKER) (test bfhh=515) 10.0 GM/DL 13.7-17.5 HEMATOCRIT (BEAKER) (test blsu=761) 30.5 % 40.1-51.0 MEAN CORPUSCULAR VOLUME (BEAKER) (test orms=652) 87.4 fL 79.0-92.2 MEAN CORPUSCULAR HEMOGLOBIN (BEAKER) (test wwfd=146) 28.7 pg 25.7-32.2 MEAN CORPUSCULAR HEMOGLOBIN CONC (BEAKER) (test odgh=141) 32.8 GM/DL 32.3-36.5 RED CELL DISTRIBUTION WIDTH (BEAKER) (test vmuc=721) 13.8 % 11.6-14.4 PLATELET COUNT (BEAKER) (test ryrn=175) 137 K/CU MM 150-450 MEAN PLATELET VOLUME (BEAKER) (test llfb=488) 9.1 fL 9.4-12.4 NUCLEATED RED BLOOD CELLS (BEAKER) (test xepx=223) 0 /100 WBC 0-0 NEUTROPHILS RELATIVE PERCENT (BEAKER) (test qljf=633) 56 % LYMPHOCYTES RELATIVE PERCENT (BEAKER) (test qche=952) 24 % MONOCYTES RELATIVE PERCENT (BEAKER) (test jgoo=368) 14 % EOSINOPHILS RELATIVE PERCENT (BEAKER) (test dhkl=628) 2 % BASOPHILS RELATIVE PERCENT (BEAKER) (test vdsl=323) 1 % NEUTROPHILS ABSOLUTE COUNT (BEAKER) (test gzpw=151) 4.39 K/ L 1.78-5.38 LYMPHOCYTES ABSOLUTE COUNT (BEAKER) (test wrkt=762) 1.88 K/ L 1.32-3.57 MONOCYTES ABSOLUTE COUNT (BEAKER) (test nmmb=944) 1.07 K/ L 0.30-0.82 EOSINOPHILS ABSOLUTE COUNT (BEAKER) (test aqmp=007) 0.17 K/ L 0.04-0.54 BASOPHILS ABSOLUTE COUNT (BEAKER) (test jmnb=673) 0.06 K/ L 0.01-0.08 IMMATURE GRANULOCYTES-RELATIVE PERCENT (BEAKER) (test yedq=7487) 3 % 0-1 POCT-GLUCOSE [id number] 22:54:00* Test Item Value Reference Range Comments POC-GLUCOSE METER (BEAKER) (test fyfd=8990) 131 mg/dL 70-110 TESTED AT [facility] [address] [facility] [address] POCT-GLUCOSE [id number] 12:56:00* Test Item Value Reference Range Comments POC-GLUCOSE METER (BEAKER) (test fgxg=4216) 105 mg/dL 70-110 TESTED AT [place] [id number] [facility] [address] RAD, CHEST, 1 VIEW, NON [id number] 11:12:00Reason for exam:->? Pulmonary edemaShould this be performed at the bedside?->YesFINAL REPORT Comparison: 04/27/2017 TECHNIQUE: Single view of the chest FINDINGS: Interval removal of right internal jugular pulmonary arterial catheter. Transfemoral Impella has also been removed. No other significant change. Lung volumes are low, grossly clear. Postsurgical changes in the mediastinum and left sided pacing device again noted. Signed: Twin Qureshi MDReport Verified Date/Time: 04/29/2017 11:12:33 Reading Location: [address] Transitional Reading Room -GLUCOSE [id number] 09:20:00* Test Item Value Reference Range Comments POC-GLUCOSE METER (BEAKER) (test yjue=9659) 159 mg/dL 70-110 TESTED AT [facility] [address] [place] [address] BASIC METABOLIC [id number] 08:06:00* Test Item Value Reference Range Comments SODIUM (BEAKER) (test nqfy=711) 133 meq/L 136-145 POTASSIUM (BEAKER) (test nduv=895) 3.9 meq/L 3.5-5.1 CHLORIDE (BEAKER) (test vgul=304) 96 meq/L 98-107 CO2 (BEAKER) (test bfos=420) 27 meq/L 22-29 BLOOD UREA NITROGEN (BEAKER) (test ojto=510) 21 mg/dL 7-21 CREATININE (BEAKER) (test rovy=748) 0.95 mg/dL 0.57-1.25 GLUCOSE RANDOM (BEAKER) (test zpio=416) 119 mg/dL 70-105 CALCIUM (BEAKER) (test nbzo=854) 8.8 mg/dL 8.4-10.2 EGFR (BEAKER) (test ppsx=8446) mL/min/1.73 sq m INSUFFICIENT CLINICAL DATA TO CALCULATE ESTIMATED GFR. Specimen slightly ictericCBC W/PLT COUNT & AUTO [id number] 06:13:00 * Test Item Value Reference Range Comments WHITE BLOOD CELL COUNT (BEAKER) (test yepz=563) 8.0 K/ L 3.5-10.5 RED BLOOD CELL COUNT (BEAKER) (test alqp=991) 3.77 M/ L 4.63-6.08 HEMOGLOBIN (BEAKER) (test pczt=150) 11.0 GM/DL 13.7-17.5 HEMATOCRIT (BEAKER) (test ymoj=644) 32.6 % 40.1-51.0 MEAN CORPUSCULAR VOLUME (BEAKER) (test qmks=593) 86.5 fL 79.0-92.2 MEAN CORPUSCULAR HEMOGLOBIN (BEAKER) (test iaaw=686) 29.2 pg 25.7-32.2 MEAN CORPUSCULAR HEMOGLOBIN CONC (BEAKER) (test jris=423) 33.7 GM/DL 32.3-36.5 RED CELL DISTRIBUTION WIDTH (BEAKER) (test fyro=722) 13.4 % 11.6-14.4 PLATELET COUNT (BEAKER) (test zwvn=769) 111 K/CU MM 150-450 MEAN PLATELET VOLUME (BEAKER) (test xxtc=653) 8.9 fL 9.4-12.4 NUCLEATED RED BLOOD CELLS (BEAKER) (test zrev=614) 0 /100 WBC 0-0 NEUTROPHILS RELATIVE PERCENT (BEAKER) (test qgww=123) 63 % LYMPHOCYTES RELATIVE PERCENT (BEAKER) (test jcde=673) 19 % MONOCYTES RELATIVE PERCENT (BEAKER) (test qjqr=815) 13 % EOSINOPHILS RELATIVE PERCENT (BEAKER) (test ngry=173) 2 % BASOPHILS RELATIVE PERCENT (BEAKER) (test tqon=901) 0 % NEUTROPHILS ABSOLUTE COUNT (BEAKER) (test imry=321) 5.07 K/ L 1.78-5.38 LYMPHOCYTES ABSOLUTE COUNT (BEAKER) (test dycn=804) 1.54 K/ L 1.32-3.57 MONOCYTES ABSOLUTE COUNT (BEAKER) (test poxl=046) 1.04 K/ L 0.30-0.82 EOSINOPHILS ABSOLUTE COUNT (BEAKER) (test kuxh=160) 0.18 K/ L 0.04-0.54 BASOPHILS ABSOLUTE COUNT (BEAKER) (test gedw=121) 0.03 K/ L 0.01-0.08 IMMATURE GRANULOCYTES-RELATIVE PERCENT (BEAKER) (test pkoi=5942) 2 % 0-1 GLUCOSE-STAT [id number] 16:30:00* Test Item Value Reference Range Comments GLUCOSE RANDOM (BEAKER) (test fdsb=095) 130 mg/dL 70-110 POTASSIUM-STAT [id number] 16:30:00* Test Item Value Reference Range Comments POTASSIUM (BEAKER) (test xnyy=671) 3.4 meq/L 3.6-5.5 [id number] 09:42:00* Test Item Value Reference Range Comments POTASSIUM (BEAKER) (test ijsi=673) 3.4 meq/L 3.5-5.1 [id number] 09:42:00* Test Item Value Reference Range Comments MAGNESIUM (BEAKER) (test pqac=273) 2.4 mg/dL 1.6-2.6 BASIC METABOLIC [id number] 03:50:00* Test Item Value Reference Range Comments SODIUM (BEAKER) (test vlqs=024) 137 meq/L 136-145 POTASSIUM (BEAKER) (test esmc=186) 3.5 meq/L 3.5-5.1 CHLORIDE (BEAKER) (test dvsf=072) 96 meq/L 98-107 CO2 (BEAKER) (test zzqe=218) 31 meq/L 22-29 BLOOD UREA NITROGEN (BEAKER) (test ddpw=373) 19 mg/dL 7-21 CREATININE (BEAKER) (test wttb=169) 0.84 mg/dL 0.57-1.25 GLUCOSE RANDOM (BEAKER) (test cfms=403) 110 mg/dL 70-105 CALCIUM (BEAKER) (test lzxj=849) 8.5 mg/dL 8.4-10.2 EGFR (BEAKER) (test mlxj=9919) mL/min/1.73 sq m INSUFFICIENT CLINICAL DATA TO CALCULATE ESTIMATED GFR. Specimen slightly [id number] 03:48:00* Test Item Value Reference Range Comments PHOSPHORUS (BEAKER) (test kuxo=441) 2.6 mg/dL 2.3-4.7 LACTATE DEHYDROGENASE (LDH)2017-04-28 03:48:00* Test Item Value Reference Range Comments LACTATE DEHYDROGENASE (BEAKER) (test rvyy=944) 1127 U/L 125-220 CALCIUM, [id number] 03:28:00* Test Item Value Reference Range Comments CALCIUM IONIZED (BEAKER) (test imtb=767) 1.02 mmol/L 1.12-1.27 PH, BLOOD (BEAKER) (test pbrv=7940) 7.50 CBC W/PLT COUNT & AUTO [id number] 03:26:00* Test Item Value Reference Range Comments WHITE BLOOD CELL COUNT (BEAKER) (test hpqe=120) 7.6 K/ L 3.5-10.5 RED BLOOD CELL COUNT (BEAKER) (test homx=116) 3.68 M/ L 4.63-6.08 HEMOGLOBIN (BEAKER) (test dvzu=369) 10.7 GM/DL 13.7-17.5 HEMATOCRIT (BEAKER) (test lbdf=549) 31.5 % 40.1-51.0 MEAN CORPUSCULAR VOLUME (BEAKER) (test ujvv=124) 85.6 fL 79.0-92.2 MEAN CORPUSCULAR HEMOGLOBIN (BEAKER) (test tsje=895) 29.1 pg 25.7-32.2 MEAN CORPUSCULAR HEMOGLOBIN CONC (BEAKER) (test ueht=059) 34.0 GM/DL 32.3-36.5 RED CELL DISTRIBUTION WIDTH (BEAKER) (test gyts=700) 13.3 % 11.6-14.4 PLATELET COUNT (BEAKER) (test epva=161) 95 K/CU MM 150-450 MEAN PLATELET VOLUME (BEAKER) (test wgyw=899) 8.9 fL 9.4-12.4 NUCLEATED RED BLOOD CELLS (BEAKER) (test bzpf=933) 0 /100 WBC 0-0 NEUTROPHILS RELATIVE PERCENT (BEAKER) (test qnqr=129) 66 % LYMPHOCYTES RELATIVE PERCENT (BEAKER) (test hdgc=824) 18 % MONOCYTES RELATIVE PERCENT (BEAKER) (test eckh=983) 14 % EOSINOPHILS RELATIVE PERCENT (BEAKER) (test kpis=752) 1 % BASOPHILS RELATIVE PERCENT (BEAKER) (test ljvh=534) 1 % NEUTROPHILS ABSOLUTE COUNT (BEAKER) (test tzxi=790) 4.96 K/ L 1.78-5.38 LYMPHOCYTES ABSOLUTE COUNT (BEAKER) (test xsmh=130) 1.37 K/ L 1.32-3.57 MONOCYTES ABSOLUTE COUNT (BEAKER) (test exwf=789) 1.02 K/ L 0.30-0.82 EOSINOPHILS ABSOLUTE COUNT (BEAKER) (test ungh=249) 0.10 K/ L 0.04-0.54 BASOPHILS ABSOLUTE COUNT (BEAKER) (test nooy=519) 0.04 K/ L 0.01-0.08 IMMATURE GRANULOCYTES-RELATIVE PERCENT (BEAKER) (test tydb=3382) 1 % 0-1 OXYGEN SATURATION, [id number] 03:23:00* Test Item Value Reference Range Comments O2 SATURATION (MEASURED) (BEAKER) (test itkz=8301) 61.8 % [id number] 00:47:00* Test Item Value Reference Range Comments POTASSIUM (BEAKER) (test itun=071) 3.7 meq/L 3.5-5.1 [id number] 00:47:00* Test Item Value Reference Range Comments MAGNESIUM (BEAKER) (test kxqx=004) 2.3 mg/dL 1.6-2.6 VANCOMYCIN LEVEL, [id number] 23:54:00* Test Item Value Reference Range Comments VANCOMYCIN TROUGH (BEAKER) (test lsde=296) 16.7 ug/mL 10.0-20.0 [id number] 15:02:00* Test Item Value Reference Range Comments PARTIAL THROMBOPLASTIN TIME (BEAKER) (test slpv=726) 57.2 seconds 22.5-36.0 [id number] 15:00:00* Test Item Value Reference Range Comments MAGNESIUM (BEAKER) (test jxrk=833) 2.3 mg/dL 1.6-2.6 Specimen slightly hemolyzed [id number] 15:00:00* Test Item Value Reference Range Comments POTASSIUM (BEAKER) (test bfss=874) 3.8 meq/L 3.5-5.1 Specimen slightly hemolyzed OXYGEN SATURATION, [id number] 14:28:00* Test Item Value Reference Range Comments O2 SATURATION (MEASURED) (BEAKER) (test bpjx=9161) 47.4 % VANCOMYCIN LEVEL, [id number] 11:26:00* Test Item Value Reference Range Comments VANCOMYCIN RANDOM (BEAKER) (test sfrn=467) 13.6 ug/mL Reference Range: No NormalsRAD, CHEST, 1 VIEW, NON [id number] 07:57:00Reason for exam:->s/p impella placementShould this be performed at the bedside?->Yes FINAL REPORT AP chest HISTORY: Impella Comparison: 2016 IMPRESSION:Unchanged support lines. Mild pulmonary vascular congestion. No focal infiltrate. No effusion or pneumothorax. Signed: Lobito Mckenzie MDReport Verified Date/Time: 04/27/2017 07:57:43 Reading Location: [facility] Reading Room Electronically signed by: LOBITO MCKENZIE M.D. on 04/27 07:57 AM BASIC METABOLIC [id number] 03:45:00* Test Item Value Reference Range Comments SODIUM (BEAKER) (test vbbo=995) 135 meq/L 136-145 POTASSIUM (BEAKER) (test hsqc=419) 3.6 meq/L 3.5-5.1 Specimen slightly hemolyzed CHLORIDE (BEAKER) (test cimq=151) 95 meq/L 98-107 CO2 (BEAKER) (test ivgi=657) 30 meq/L 22-29 BLOOD UREA NITROGEN (BEAKER) (test wszp=532) 20 mg/dL 7-21 CREATININE (BEAKER) (test zick=503) 0.79 mg/dL 0.57-1.25 Specimen slightly hemolyzed GLUCOSE RANDOM (BEAKER) (test gsew=659) 108 mg/dL 70-105 CALCIUM (BEAKER) (test sxtn=442) 8.5 mg/dL 8.4-10.2 EGFR (BEAKER) (test lmqx=1959) mL/min/1.73 sq m INSUFFICIENT CLINICAL DATA TO CALCULATE ESTIMATED GFR. Specimen moderately ictericLACTATE DEHYDROGENASE (LDH)2017-04-27 03:45:00* Test Item Value Reference Range Comments LACTATE DEHYDROGENASE (BEAKER) (test hsqf=327) 1065 U/L 125-220 Specimen slightly hemolyzed [id number] 03:15:00* Test Item Value Reference Range Comments PROTIME (BEAKER) (test xnxn=916) 15.2 seconds 11.7-14.7 INR (BEAKER) (test dsug=900) 1.2 <=5.9 PARTIAL THROMBOPLASTIN TIME (BEAKER) (test mwdt=896) 63.8 seconds 22.5-36.0 RECOMMENDED COUMADIN/WARFARIN INR THERAPY RANGESSTANDARD DOSE: 2.0 - 3.0 Inclu zoey: PROPHYLAXIS for venous thrombosis, systemic embolization; TREATMENT for hernan ous thrombosis and/or pulmonary embolus.HIGH RISK: Target INR is 2.5-3.5 for pat ients with mechanical heart valves.PROTHROMBIN TIME/[id number] 03:14:00* Test Item Value Reference Range Comments PROTIME (BEAKER) (test ypql=749) 15.2 seconds 11.7-14.7 INR (BEAKER) (test wnmb=198) 1.2 <=5.9 RECOMMENDED COUMADIN/WARFARIN INR THERAPY RANGESSTANDARD DOSE: 2.0 - 3.0 Inclu zoey: PROPHYLAXIS for venous thrombosis, systemic embolization; TREATMENT for hernan ous thrombosis and/or pulmonary embolus.HIGH RISK: Target INR is 2.5-3.5 for pat ients with mechanical heart valves.[id number] 03:04:00* Test Item Value Reference Range Comments MAGNESIUM (BEAKER) (test rlgn=633) 2.2 mg/dL 1.6-2.6 Specimen slightly hemolyzed [id number] 03:04:00* Test Item Value Reference Range Comments PHOSPHORUS (BEAKER) (test onlp=874) 1.8 mg/dL 2.3-4.7 Specimen slightly hemolyzed [id number] 03:04:00* Test Item Value Reference Range Comments POTASSIUM (BEAKER) (test uiqf=109) 3.6 meq/L 3.5-5.1 Specimen slightly hemolyzed LACTIC ACID, ARTERIAL, WHOLE [id number] 02:59:00* Test Item Value Reference Range Comments LACTATE BLOOD ARTERIAL (2) (BEAKER) (test gffz=4008) 0.8 mmol/L 0.5-2.2 Effective 09/08/2015: Units/Reference Range ChangeNew: 0.5-2.2 mmol/L Previous: 5 -20 mg/dLSpecimen slightly ictericCBC W/PLT COUNT & AUTO [id number] 02:45:00* Test Item Value Reference Range Comments WHITE BLOOD CELL COUNT (BEAKER) (test jsnx=980) 7.3 K/ L 3.5-10.5 RED BLOOD CELL COUNT (BEAKER) (test wyio=494) 3.83 M/ L 4.63-6.08 HEMOGLOBIN (BEAKER) (test pzwq=181) 11.2 GM/DL 13.7-17.5 HEMATOCRIT (BEAKER) (test jtqs=853) 33.0 % 40.1-51.0 MEAN CORPUSCULAR VOLUME (BEAKER) (test vuyw=137) 86.2 fL 79.0-92.2 MEAN CORPUSCULAR HEMOGLOBIN (BEAKER) (test yihr=108) 29.2 pg 25.7-32.2 MEAN CORPUSCULAR HEMOGLOBIN CONC (BEAKER) (test uwrm=338) 33.9 GM/DL 32.3-36.5 RED CELL DISTRIBUTION WIDTH (BEAKER) (test kzpb=245) 13.5 % 11.6-14.4 PLATELET COUNT (BEAKER) (test djvm=568) 108 K/CU MM 150-450 MEAN PLATELET VOLUME (BEAKER) (test xhpe=359) 9.2 fL 9.4-12.4 NUCLEATED RED BLOOD CELLS (BEAKER) (test zgnk=185) 0 /100 WBC 0-0 NEUTROPHILS RELATIVE PERCENT (BEAKER) (test vsbt=732) 67 % LYMPHOCYTES RELATIVE PERCENT (BEAKER) (test kblq=508) 17 % MONOCYTES RELATIVE PERCENT (BEAKER) (test agiz=551) 14 % EOSINOPHILS RELATIVE PERCENT (BEAKER) (test seyv=176) 1 % BASOPHILS RELATIVE PERCENT (BEAKER) (test bdmp=993) 1 % NEUTROPHILS ABSOLUTE COUNT (BEAKER) (test vsgu=653) 4.88 K/ L 1.78-5.38 LYMPHOCYTES ABSOLUTE COUNT (BEAKER) (test hfui=846) 1.25 K/ L 1.32-3.57 MONOCYTES ABSOLUTE COUNT (BEAKER) (test ypqg=777) 0.99 K/ L 0.30-0.82 EOSINOPHILS ABSOLUTE COUNT (BEAKER) (test hrfl=419) 0.09 K/ L 0.04-0.54 BASOPHILS ABSOLUTE COUNT (BEAKER) (test lnvc=282) 0.04 K/ L 0.01-0.08 IMMATURE GRANULOCYTES-RELATIVE PERCENT (BEAKER) (test xtuv=3033) 1 % 0-1 CALCIUM, [id number] 02:42:00* Test Item Value Reference Range Comments CALCIUM IONIZED (BEAKER) (test zpnw=847) 0.96 mmol/L 1.12-1.27 PH, BLOOD (BEAKER) (test xanw=3841) 7.50 OXYGEN SATURATION, [id number] 02:41:00* Test Item Value Reference Range Comments O2 SATURATION (MEASURED) (BEAKER) (test stja=9720) 54.4 % [id number] 18:52:00* Test Item Value Reference Range Comments POTASSIUM (BEAKER) (test oxpa=183) 3.8 meq/L 3.5-5.1 [id number] 18:52:00* Test Item Value Reference Range Comments MAGNESIUM (BEAKER) (test qhvk=083) 2.1 mg/dL 1.6-2.6 [id number] 18:45:00* Test Item Value Reference Range Comments PROTIME (BEAKER) (test xiok=206) 15.7 seconds 11.7-14.7 INR (BEAKER) (test yjvj=856) 1.3 <=5.9 PARTIAL THROMBOPLASTIN TIME (BEAKER) (test jpdz=396) 50.7 seconds 22.5-36.0 RECOMMENDED COUMADIN/WARFARIN INR THERAPY RANGESSTANDARD DOSE: 2.0 - 3.0 Inclu zoey: PROPHYLAXIS for venous thrombosis, systemic embolization; TREATMENT for hernan ous thrombosis and/or pulmonary embolus.HIGH RISK: Target INR is 2.5-3.5 for pat ients with mechanical heart valves.[id number] 12:11:00* Test Item Value Reference Range Comments POTASSIUM (BEAKER) (test jcjl=473) 3.7 meq/L 3.5-5.1 [id number] 12:11:00* Test Item Value Reference Range Comments MAGNESIUM (BEAKER) (test kyjj=213) 2.2 mg/dL 1.6-2.6 [id number] 12:05:00* Test Item Value Reference Range Comments PROTIME (BEAKER) (test jsec=425) 16.2 seconds 11.7-14.7 INR (BEAKER) (test dxwk=105) 1.3 <=5.9 PARTIAL THROMBOPLASTIN TIME (BEAKER) (test vlds=188) 47.3 seconds 22.5-36.0 RECOMMENDED COUMADIN/WARFARIN INR THERAPY RANGESSTANDARD DOSE: 2.0 - 3.0 Inclu zoey: PROPHYLAXIS for venous thrombosis, systemic embolization; TREATMENT for hernan ous thrombosis and/or pulmonary embolus.HIGH RISK: Target INR is 2.5-3.5 for pat ients with mechanical heart valves.OXYGEN SATURATION, [id number] 10:06:00* Test Item Value Reference Range Comments O2 SATURATION (MEASURED) (BEAKER) (test tzym=0189) 55.4 % RAD, CHEST, 1 VIEW, NON [id number] 09:55:00Reason for exam:->s/p impella placementShould this be performed at the bedside?->YesFINAL REPORT Chest one view. Clinical history: s/p Impella placement Comparison: 04/25/2017 Discussion: A frontal chest is provided. Cardiomediastinal contours are unchanged. Lines and tubes are in stable position. Pulmonary edema has decreased. No new consolidation. No pneumothorax or large effusion. Signed: Guy Malhotraeport Verified Date/Time: 04/26/2017 09:55:13 Reading Location: [facility] Radiology Reading Room EN SATURATION, [id number] 08:04:00* Test Item Value Reference Range Comments O2 SATURATION (MEASURED) (BEAKER) (test wauo=7528) 40.3 % LACTATE DEHYDROGENASE (LDH)2017-04-26 06:20:00* Test Item Value Reference Range Comments LACTATE DEHYDROGENASE (BEAKER) (test wnhd=972) 611 U/L 125-220 BASIC METABOLIC [id number] 04:25:00* Test Item Value Reference Range Comments SODIUM (BEAKER) (test mtcr=675) 135 meq/L 136-145 POTASSIUM (BEAKER) (test olsh=318) 3.6 meq/L 3.5-5.1 CHLORIDE (BEAKER) (test usou=330) 101 meq/L 98-107 CO2 (BEAKER) (test kdbb=965) 28 meq/L 22-29 BLOOD UREA NITROGEN (BEAKER) (test shnp=823) 18 mg/dL 7-21 CREATININE (BEAKER) (test aywr=560) 0.72 mg/dL 0.57-1.25 GLUCOSE RANDOM (BEAKER) (test poph=037) 100 mg/dL 70-105 CALCIUM (BEAKER) (test vwgr=472) 8.0 mg/dL 8.4-10.2 EGFR (BEAKER) (test zzaw=7859) mL/min/1.73 sq m INSUFFICIENT CLINICAL DATA TO CALCULATE ESTIMATED GFR. Specimen slightly [id number] 04:22:00* Test Item Value Reference Range Comments MAGNESIUM (BEAKER) (test qgre=736) 2.0 mg/dL 1.6-2.6 [id number] 03:57:00* Test Item Value Reference Range Comments PARTIAL THROMBOPLASTIN TIME (BEAKER) (test pyjw=423) 41.0 seconds 22.5-36.0 CBC (HEMOGRAM ONLY)2017-04-26 03:49:00* Test Item Value Reference Range Comments WHITE BLOOD CELL COUNT (BEAKER) (test eyuk=702) 6.4 K/ L 3.5-10.5 RED BLOOD CELL COUNT (BEAKER) (test vuur=163) 3.14 M/ L 4.63-6.08 HEMOGLOBIN (BEAKER) (test ckrw=424) 9.4 GM/DL 13.7-17.5 HEMATOCRIT (BEAKER) (test ctkn=713) 27.3 % 40.1-51.0 MEAN CORPUSCULAR VOLUME (BEAKER) (test opmz=499) 86.9 fL 79.0-92.2 MEAN CORPUSCULAR HEMOGLOBIN (BEAKER) (test ojqg=918) 29.9 pg 25.7-32.2 MEAN CORPUSCULAR HEMOGLOBIN CONC (BEAKER) (test oufw=086) 34.4 GM/DL 32.3-36.5 RED CELL DISTRIBUTION WIDTH (BEAKER) (test dbrq=840) 13.8 % 11.6-14.4 PLATELET COUNT (BEAKER) (test onzy=066) 91 K/CU MM 150-450 MEAN PLATELET VOLUME (BEAKER) (test bdgq=532) 9.3 fL 9.4-12.4 NUCLEATED RED BLOOD CELLS (BEAKER) (test rwds=601) 0 /100 WBC 0-0 RAD, CHEST, 1 VIEW, NON [id number] 21:35:00Reason for exam:->impella placementFINAL REPORT RAD, CHEST, 1 VIEW, NON DEPT INDICATION: impella placement COMPARISON: Prior day's exam TECHNIQUE: Portable frontal view of the chest. IMPRESSION: New Impella device projecting over its expected location.Right IJ approach [place] catheter terminating in the proximal right interlobar artery.Stable ICD.Stable cardiomegaly.Improved but persistent mild interstitial edema.No pneumothorax.No acute osseous abnormality. Signed: Tara Delgadillo MDReport Verified Date/Time: 04/25/2017 21:35:11 Reading Location: [facility] B1 [id number] Ortho Consult Reading Room C METABOLIC PANEL 2017-04-25 20:55:00* Test Item Value Reference Range Comments SODIUM (BEAKER) (test jamy=404) 135 meq/L 136-145 POTASSIUM (BEAKER) (test liko=339) 3.9 meq/L 3.5-5.1 CHLORIDE (BEAKER) (test vhst=748) 99 meq/L 98-107 CO2 (BEAKER) (test uddb=497) 27 meq/L 22-29 BLOOD UREA NITROGEN (BEAKER) (test sayq=313) 18 mg/dL 7-21 CREATININE (BEAKER) (test whix=666) 0.74 mg/dL 0.57-1.25 GLUCOSE RANDOM (BEAKER) (test jpkf=227) 115 mg/dL 70-105 CALCIUM (BEAKER) (test abni=228) 8.1 mg/dL 8.4-10.2 EGFR (BEAKER) (test ghki=3742) mL/min/1.73 sq m INSUFFICIENT CLINICAL DATA TO CALCULATE ESTIMATED GFR. Specimen slightly [id number] 20:53:00* Test Item Value Reference Range Comments MAGNESIUM (BEAKER) (test vpen=099) 2.1 mg/dL 1.6-2.6 [id number] 20:51:00* Test Item Value Reference Range Comments FIBRINOGEN LEVEL (BEAKER) (test qkra=380) 859 mg/dl 225-434 [id number] 20:47:00* Test Item Value Reference Range Comments PARTIAL THROMBOPLASTIN TIME (BEAKER) (test utzr=098) 31.4 seconds 22.5-36.0 PROTHROMBIN TIME/[id number] 20:46:00* Test Item Value Reference Range Comments PROTIME (BEAKER) (test nrfl=610) 16.2 seconds 11.7-14.7 INR (BEAKER) (test mpxj=372) 1.3 <=5.9 RECOMMENDED COUMADIN/WARFARIN INR THERAPY RANGESSTANDARD DOSE: 2.0 - 3.0 Inclu zoey: PROPHYLAXIS for venous thrombosis, systemic embolization; TREATMENT for hernan ous thrombosis and/or pulmonary embolus.HIGH RISK: Target INR is 2.5-3.5 for pat ients with mechanical heart valves.POTASSIUM-STAT [id number] 20:04:00* Test Item Value Reference Range Comments POTASSIUM (BEAKER) (test hqrx=814) 3.7 meq/L 3.6-5.5 CALCIUM, [id number] 20:04:00* Test Item Value Reference Range Comments CALCIUM IONIZED (BEAKER) (test ltbp=555) 0.97 mmol/L 1.12-1.27 PH, BLOOD (BEAKER) (test ajjz=4744) 7.44 SODIUM NA-STAT [id number] 20:04:00* Test Item Value Reference Range Comments SODIUM (BEAKER) (test zgwi=558) 132 meq/L 135-148 GLUCOSE-STAT [id number] 20:04:00* Test Item Value Reference Range Comments GLUCOSE RANDOM (BEAKER) (test ball=923) 114 mg/dL 70-110 HGB/HCT (H&H) - STAT [id number] 20:04:00* Test Item Value Reference Range Comments HEMOGLOBIN (BEAKER) (test vhff=021) 11.2 g/dL 13.0-16.8 HEMATOCRIT (BEAKER) (test zjvy=376) 33.0 % 40.0-50.0 OXYGEN SATURATION, [id number] 20:04:00* Test Item Value Reference Range Comments O2 SATURATION (MEASURED) (BEAKER) (test qzwp=0354) 62.8 % HEPATIC FUNCTION [id number] 18:31:00* Test Item Value Reference Range Comments TOTAL PROTEIN (BEAKER) (test hcgs=011) 6.5 gm/dL 6.0-8.3 ALBUMIN (BEAKER) (test ogkg=7076) 3.0 g/dL 3.5-5.0 BILIRUBIN TOTAL (BEAKER) (test raha=095) 2.3 mg/dL 0.2-1.2 BILIRUBIN DIRECT (BEAKER) (test dyfg=169) 1.6 mg/dL 0.1-0.5 ALKALINE PHOSPHATASE (BEAKER) (test wtut=111) 40 U/L 40-150 AST (SGOT) (BEAKER) (test kwwz=263) 58 U/L 5-34 ALT (SGPT) (BEAKER) (test ehky=664) 22 U/L 6-55 BASIC METABOLIC [id number] 18:20:00* Test Item Value Reference Range Comments SODIUM (BEAKER) (test qdww=719) 134 meq/L 136-145 POTASSIUM (BEAKER) (test aljf=448) 4.0 meq/L 3.5-5.1 CHLORIDE (BEAKER) (test fspx=558) 100 meq/L 98-107 CO2 (BEAKER) (test nfim=167) 28 meq/L 22-29 BLOOD UREA NITROGEN (BEAKER) (test sgoz=187) 19 mg/dL 7-21 CREATININE (BEAKER) (test mtvb=193) 0.77 mg/dL 0.57-1.25 GLUCOSE RANDOM (BEAKER) (test zfmw=608) 123 mg/dL 70-105 CALCIUM (BEAKER) (test ppko=490) 8.1 mg/dL 8.4-10.2 EGFR (BEAKER) (test zddc=8152) mL/min/1.73 sq m INSUFFICIENT CLINICAL DATA TO CALCULATE ESTIMATED GFR. LACTATE DEHYDROGENASE (LDH)2017-04-25 18:17:00* Test Item Value Reference Range Comments LACTATE DEHYDROGENASE (BEAKER) (test pkgu=422) 521 U/L 125-220 PT/[id number] 18:01:00* Test Item Value Reference Range Comments PROTIME (BEAKER) (test rkvf=473) 16.3 seconds 11.7-14.7 INR (BEAKER) (test lzdb=071) 1.3 <=5.9 PARTIAL THROMBOPLASTIN TIME (BEAKER) (test jqbv=468) 49.6 seconds 22.5-36.0 RECOMMENDED COUMADIN/WARFARIN INR THERAPY RANGESSTANDARD DOSE: 2.0 - 3.0 Inclu zoey: PROPHYLAXIS for venous thrombosis, systemic embolization; TREATMENT for hernan ous thrombosis and/or pulmonary embolus.HIGH RISK: Target INR is 2.5-3.5 for pat ients with mechanical heart valves.CBC W/PLT COUNT & AUTO [id number] 17:52:00* Test Item Value Reference Range Comments WHITE BLOOD CELL COUNT (BEAKER) (test hkyw=435) 9.5 K/ L 3.5-10.5 RED BLOOD CELL COUNT (BEAKER) (test taea=325) 3.67 M/ L 4.63-6.08 HEMOGLOBIN (BEAKER) (test vjld=273) 10.9 GM/DL 13.7-17.5 HEMATOCRIT (BEAKER) (test pixn=314) 32.0 % 40.1-51.0 MEAN CORPUSCULAR VOLUME (BEAKER) (test hztk=936) 87.2 fL 79.0-92.2 MEAN CORPUSCULAR HEMOGLOBIN (BEAKER) (test dpna=548) 29.7 pg 25.7-32.2 MEAN CORPUSCULAR HEMOGLOBIN CONC (BEAKER) (test ietk=139) 34.1 GM/DL 32.3-36.5 RED CELL DISTRIBUTION WIDTH (BEAKER) (test alqp=804) 13.8 % 11.6-14.4 PLATELET COUNT (BEAKER) (test oxkt=404) 121 K/CU MM 150-450 MEAN PLATELET VOLUME (BEAKER) (test svhm=940) 9.2 fL 9.4-12.4 NUCLEATED RED BLOOD CELLS (BEAKER) (test ggdl=166) 0 /100 WBC 0-0 NEUTROPHILS RELATIVE PERCENT (BEAKER) (test qykt=102) 75 % LYMPHOCYTES RELATIVE PERCENT (BEAKER) (test ubil=008) 10 % MONOCYTES RELATIVE PERCENT (BEAKER) (test ozry=383) 15 % EOSINOPHILS RELATIVE PERCENT (BEAKER) (test oryw=692) 0 % BASOPHILS RELATIVE PERCENT (BEAKER) (test xuyn=397) 0 % NEUTROPHILS ABSOLUTE COUNT (BEAKER) (test qhpn=014) 7.06 K/ L 1.78-5.38 LYMPHOCYTES ABSOLUTE COUNT (BEAKER) (test ltuz=490) 0.95 K/ L 1.32-3.57 MONOCYTES ABSOLUTE COUNT (BEAKER) (test znwy=084) 1.38 K/ L 0.30-0.82 EOSINOPHILS ABSOLUTE COUNT (BEAKER) (test aruv=443) 0.02 K/ L 0.04-0.54 BASOPHILS ABSOLUTE COUNT (BEAKER) (test hrkr=987) 0.01 K/ L 0.01-0.08 IMMATURE GRANULOCYTES-RELATIVE PERCENT (BEAKER) (test tvhb=2571) 0 % 0-1 HEPATITIS B [id number] 17:42:00* Test Item Value Reference Range Comments HEPATITIS B CORE TOTAL ANTIBODY (BEAKER) (test ngxk=353) Nonreactive Nonreactive HEPATITIS B SURFACE ANTIBODY (BEAKER) (test tsje=061) < mIU/mL <8.0 HEPATITIS B SURFACE ANTIGEN (2) (BEAKER) (test ooxh=1037) Nonreactive Nonreactive HIV-1 ANTIGEN WITH HIV-1/2 [id number] 17:05:00* Test Item Value Reference Range Comments HIV-1 ANTIGEN WITH HIV 1\T\2 ANTIBODY (2) (BEAKER) (test fyng=5498) Nonreactive Nonreactive HEPATITIS C [id number] 16:27:00* Test Item Value Reference Range Comments HEPATITIS C ANTIBODY (BEAKER) (test rhkg=696) Nonreactive Nonreactive [id number] 13:00:00* Test Item Value Reference Range Comments ACTIVATED CLOTTING TIME (BEAKER) (test kojy=622) 224 sec TESTED AT [facility] [address] [facility] [address] TROPONIN [id number] 10:53:00* Test Item Value Reference Range Comments TROPONIN I (BEAKER) (test nhfy=353) 17.38 ng/mL 0.00-0.03 Troponin I (TnI) levels must be interpreted in the context of the presenting sym ptoms and the clinical findings. Elevated TnI levels indicate myocardial damage, but are not specific for ischemic heart disease. Elevated TnI levels are seen in patients with other cardiac conditions (including myocarditis and congestive h eart failure), and slight TnI elevations occur in patients with other conditions , including sepsis, renal failure, acidosis, acute neurological disease, and per sistent tachyarrhythmia.CREATINE KINASE (CK), TOTAL AND [id number] 10:45:00* Test Item Value Reference Range Comments CREATINE KINASE TOTAL (BEAKER) (test mhls=344) 340 U/L 29-200 CREATINE KINASE-MB (BEAKER) (test xdio=539) 6.4 ng/mL 0.0-6.6 CREATINE KINASE-MB INDEX (BEAKER) (test ozur=981) 1.9 % CK-MB Reference Range:<6.7 Normal6.7-10.0 Borderline>10.0 AbnormalAPTT 2017-04-25 07:22:00* Test Item Value Reference Range Comments PARTIAL THROMBOPLASTIN TIME (BEAKER) (test soay=142) 45.6 seconds 22.5-36.0 B-TYPE NATRIURETIC FACTOR (BNP)2017-04-25 04:42:00* Test Item Value Reference Range Comments B-TYPE NATRIURETIC PEPTIDE (BEAKER) (test xixi=032) 2045 pg/mL 0-100 [id number] 04:25:00* Test Item Value Reference Range Comments MAGNESIUM (BEAKER) (test dgdr=750) 1.8 mg/dL 1.6-2.6 BASIC METABOLIC [id number] 04:25:00* Test Item Value Reference Range Comments SODIUM (BEAKER) (test smmj=341) 134 meq/L 136-145 POTASSIUM (BEAKER) (test jnze=898) 3.6 meq/L 3.5-5.1 CHLORIDE (BEAKER) (test jaqz=492) 101 meq/L 98-107 CO2 (BEAKER) (test lekl=818) 22 meq/L 22-29 BLOOD UREA NITROGEN (BEAKER) (test hbag=572) 19 mg/dL 7-21 CREATININE (BEAKER) (test hkrx=902) 0.79 mg/dL 0.57-1.25 GLUCOSE RANDOM (BEAKER) (test wscr=261) 116 mg/dL 70-105 CALCIUM (BEAKER) (test wyim=713) 8.5 mg/dL 8.4-10.2 EGFR (BEAKER) (test fxnn=1143) mL/min/1.73 sq m INSUFFICIENT CLINICAL DATA TO CALCULATE ESTIMATED GFR. Specimen slightly ictericCBC (HEMOGRAM ONLY)2017-04-25 03:55:00* Test Item Value Reference Range Comments WHITE BLOOD CELL COUNT (BEAKER) (test uxgm=121) 11.6 K/ L 3.5-10.5 RED BLOOD CELL COUNT (BEAKER) (test wown=776) 4.11 M/ L 4.63-6.08 HEMOGLOBIN (BEAKER) (test yzlj=293) 12.2 GM/DL 13.7-17.5 HEMATOCRIT (BEAKER) (test zojx=515) 36.1 % 40.1-51.0 MEAN CORPUSCULAR VOLUME (BEAKER) (test ylol=690) 87.8 fL 79.0-92.2 MEAN CORPUSCULAR HEMOGLOBIN (BEAKER) (test zgxp=617) 29.7 pg 25.7-32.2 MEAN CORPUSCULAR HEMOGLOBIN CONC (BEAKER) (test cjtd=243) 33.8 GM/DL 32.3-36.5 RED CELL DISTRIBUTION WIDTH (BEAKER) (test mjln=302) 13.8 % 11.6-14.4 PLATELET COUNT (BEAKER) (test jfme=215) 139 K/CU MM 150-450 MEAN PLATELET VOLUME (BEAKER) (test vnxi=019) 9.6 fL 9.4-12.4 NUCLEATED RED BLOOD CELLS (BEAKER) (test ovgo=194) 0 /100 WBC 0-0 TROPONIN [id number] 01:35:00* Test Item Value Reference Range Comments TROPONIN I (BEAKER) (test oeyf=386) 23.37 ng/mL 0.00-0.03 Troponin I (TnI) levels must be interpreted in the context of the presenting sym ptoms and the clinical findings. Elevated TnI levels indicate myocardial damage, but are not specific for ischemic heart disease. Elevated TnI levels are seen in patients with other cardiac conditions (including myocarditis and congestive h eart failure), and slight TnI elevations occur in patients with other conditions , including sepsis, renal failure, acidosis, acute neurological disease, and per sistent tachyarrhythmia.COMPREHENSIVE METABOLIC [id number] 01:05:00* Test Item Value Reference Range Comments TOTAL PROTEIN (BEAKER) (test phck=312) 6.7 gm/dL 6.0-8.3 ALBUMIN (BEAKER) (test ebwc=4355) 3.4 g/dL 3.5-5.0 ALKALINE PHOSPHATASE (BEAKER) (test atgv=299) 45 U/L 40-150 BILIRUBIN TOTAL (BEAKER) (test zcac=618) 2.1 mg/dL 0.2-1.2 SODIUM (BEAKER) (test lgbr=373) 135 meq/L 136-145 POTASSIUM (BEAKER) (test xjcx=456) 3.5 meq/L 3.5-5.1 CHLORIDE (BEAKER) (test wlxo=942) 102 meq/L 98-107 CO2 (BEAKER) (test olyw=257) 22 meq/L 22-29 BLOOD UREA NITROGEN (BEAKER) (test lizf=235) 19 mg/dL 7-21 CREATININE (BEAKER) (test vuux=798) 0.81 mg/dL 0.57-1.25 GLUCOSE RANDOM (BEAKER) (test yttn=661) 109 mg/dL 70-105 CALCIUM (BEAKER) (test xigj=736) 8.4 mg/dL 8.4-10.2 AST (SGOT) (BEAKER) (test bblw=514) 58 U/L 5-34 ALT (SGPT) (BEAKER) (test ekfo=272) 19 U/L 6-55 EGFR (BEAKER) (test qflx=8776) mL/min/1.73 sq m INSUFFICIENT CLINICAL DATA TO CALCULATE ESTIMATED GFR. CREATINE KINASE (CK), TOTAL AND [id number] 00:48:00* Test Item Value Reference Range Comments CREATINE KINASE TOTAL (BEAKER) (test wndd=357) 393 U/L 29-200 CREATINE KINASE-MB (BEAKER) (test bimx=468) 7.2 ng/mL 0.0-6.6 CREATINE KINASE-MB INDEX (AKER) (test moxz=076) 1.8 % CK-MB Reference Range:<6.7 Normal6.7-10.0 Borderline>10.0 Abnormal PROTHROMBIN TIME/[id number] 00:39:00* Test Item Value Reference Range Comments PROTIME (KOBE) (test sddj=529) 15.9 seconds 11.7-14.7 INR (BEAKER) (test eqfy=885) 1.3 <=5.9 RECOMMENDED COUMADIN/WARFARIN INR THERAPY RANGESSTANDARD DOSE: 2.0 - 3.0 Inclu zoey: PROPHYLAXIS for venous thrombosis, systemic embolization; TREATMENT for hernan ous thrombosis and/or pulmonary embolus.HIGH RISK: Target INR is 2.5-3.5 for pat ients with mechanical heart valves.Prior to initiating [id number] 00:39:00* Test Item Value Reference Range Comments PARTIAL THROMBOPLASTIN TIME (DOMINICAKER) (test wybp=553) 38.8 seconds 22.5-36.0 Prior to initiating heparinCBC W/PLT COUNT & AUTO [id number] 00:35:00* Test Item Value Reference Range Comments WHITE BLOOD CELL COUNT (DOMINICAKER) (test xryu=258) 10.8 K/ L 3.5-10.5 RED BLOOD CELL COUNT (BEAKER) (test ynmk=233) 3.84 M/ L 4.63-6.08 HEMOGLOBIN (BEAKER) (test bdfz=279) 11.4 GM/DL 13.7-17.5 HEMATOCRIT (BEAKER) (test xhys=924) 33.5 % 40.1-51.0 MEAN CORPUSCULAR VOLUME (BEAKER) (test qkpr=766) 87.2 fL 79.0-92.2 MEAN CORPUSCULAR HEMOGLOBIN (BEAKER) (test wflw=917) 29.7 pg 25.7-32.2 MEAN CORPUSCULAR HEMOGLOBIN CONC (BEAKER) (test tnhi=425) 34.0 GM/DL 32.3-36.5 RED CELL DISTRIBUTION WIDTH (BEAKER) (test ihxw=344) 13.8 % 11.6-14.4 PLATELET COUNT (BEAKER) (test guze=589) 125 K/CU MM 150-450 MEAN PLATELET VOLUME (BEAKER) (test ixsg=814) 9.9 fL 9.4-12.4 NUCLEATED RED BLOOD CELLS (BEAKER) (test cdat=096) 0 /100 WBC 0-0 NEUTROPHILS RELATIVE PERCENT (BEAKER) (test mshw=033) 76 % LYMPHOCYTES RELATIVE PERCENT (BEAKER) (test gbmw=750) 12 % MONOCYTES RELATIVE PERCENT (BEAKER) (test pfjc=561) 12 % EOSINOPHILS RELATIVE PERCENT (BEAKER) (test rjcn=427) 0 % BASOPHILS RELATIVE PERCENT (BEAKER) (test jalj=873) 0 % NEUTROPHILS ABSOLUTE COUNT (BEAKER) (test sbrh=704) 8.20 K/ L 1.78-5.38 LYMPHOCYTES ABSOLUTE COUNT (BEAKER) (test utfn=752) 1.28 K/ L 1.32-3.57 MONOCYTES ABSOLUTE COUNT (BEAKER) (test jveg=647) 1.25 K/ L 0.30-0.82 EOSINOPHILS ABSOLUTE COUNT (BEAKER) (test nqel=064) 0.01 K/ L 0.04-0.54 BASOPHILS ABSOLUTE COUNT (BEAKER) (test ruww=719) 0.01 K/ L 0.01-0.08 IMMATURE GRANULOCYTES-RELATIVE PERCENT (BEAKER) (test eybb=6660) 1 % 0-1 BLOOD GAS, [id number] 00:24:00* Test Item Value Reference Range Comments PH ARTERIAL (BEAKER) (test osyc=342) 7.48 7.35-7.45 PCO2 ARTERIAL (BEAKER) (test idvg=090) 33 mmHg 35-45 PO2 ARTERIAL (BEAKER) (test gyfp=612) 165 mmHg 80-90 O2 SATURATION ARTERIAL (BEAKER) (test mhcf=594) 99.2 % 96.0-97.0 HCO3 ARTERIAL (BEAKER) (test pqac=281) 24 mmol/L 21-29 BASE EXCESS ARTERIAL (BEAKER) (test taqj=240) 1.1 mmol/L -2.0-3.0 PATIENT TEMPERATURE (BEAKER) (test ehyu=1459) 37.0 C FIO2 (BEAKER) (test fwpz=3864) 36.0 % RAD, CHEST, 1 VIEW, NON [id number] 23:55:00Reason for exam:->shortness of breathShould this be performed at the bedside?->YesFINAL REPORT RAD, CHEST, 1 VIEW, NON DEPT INDICATION: shortness of breath COMPARISON: None TECHNIQUE: Single frontal view of the chest. IMPRESSION:2-lead cardiac pacemaker.Enlarged cardiac silhouette.Diffuse bilateral interstitial prominence which could reflect an interstitial pneumonitis versus mild interstitial edema.No acute osseous abnormality. Signed: Tara Delgadillo MD Report Verified Date/Time: 04/24/2017 23:55:56 Reading Location: [facility] C013X [facility] Consult Reading Room Electronically signed by: TARA DELGADILLO MD on 1 06/25/2016 11:55 PM CHEST SINGLE (PORTABLE) [place] [address] Patient Name: HEATHER FITZGERALD MR #: [id number] : 1945 Age/Sex: 71/M Req #: [id number] Adm Physician: VIN ROBERT MD Ordered by: CARMELA BANKS MD Report #: [id number] Location: [facility] Room/Bed: [place] [address] Procedure: [id number] DX/CHEST SINGLE (PORTABLE) Exam Date: 04/24/17 Exam Time: 1206 REPORT STATUS: Signed PROCEDURE: A single AP view of the chest. COMPARISON: DX, CHEST 2 VIEWS, 08/19/2015, 10:41. IN DICATIONS: CHEST PAIN, DYSPNEA FINDINGS: Lines/tubes: None. Lungs: The lungs are well inflated and grossly clear. There is no evidence of consolidation. Pleura: There is no pleural effusion or pneumothorax. Heart and mediastinum: Enlarged cardiac silhouette. Central pulmonary ve nous congestion and mild perihilar interstitial opacities Bones: No acute bony abnormality. IMPRESSION: 1. enlarged cardiac silhouette, with mild central pulmonary venous congestion and perihilar interstitial edema. No consolidation or pleural effusion. Jim Romero M.D. D ictated by: Jim Romero M.D. on 04/24/2017 at 12:41 Electronicall y approved by: Jim Romero M.D. on 04/24/2017 at 12:41 Dictated By: JIM ROMERO MD [id number] Transcribed By: MAHIN on 04/24/17 1241 COPY TO: LUANN BANKS MD
[2018-05-17] MEDS ORDERED: HEPARIN SOD/SOD CHLORIDE 2,000 ML ONE (18:06)
[2018-05-17] MEDS ORDERED: MIDAZOLAM HCL 2 MG/2 ML VIAL ONE (18:06)
[2018-05-17] MEDS ORDERED: SODIUM CHLORIDE 0.9% 1000ML 1,000 ML ONE (18:06)
[2018-05-17] MEDS ORDERED: LIDOCAINE HCL 1% LOCAL INJ 20 ML VIAL ONE (18:06)
[2018-05-17] MEDS ORDERED: FENTANYL CITRATE/PF 100MCG/2 ML INJ ONE (18:06)
[2018-05-17] MEDS ORDERED: IOPAMIDOL 370 MG/ML 200 ML INFUS..BTL INJ ONE ×2 (18:06→18:45)
--- NOTE | 2018-05-17 20:20 | NUR ---
RECEIVED PT TO UNIT ROOM 211 VIA STRETCHER.PT AAO X 3.NO S/S OF DISTRESS NOTED.RESPIRATIONS EVEN/NON LABORED.PT DENIES ANY PAIN/DISCOMFORT.DRESSING TO RIGHT GROIN C/D/I.PEDAL PULSES PALPABLE.INSTRUCTED PT TO REMAIN BEDREST UNTIL 8:45 PM.PT VERBALIZED UNDERSTANDING.FAMILY AT BEDSIDE.CALL LIGHT WITHIN EASY REACH.
--- OUTSIDE RECORDS SUMMARY | 2018-05-17 20:21 | XMS REPORT | Clinical Summary ---
Author Author RODO [facility] Address Unknown Phone Unavailable Care Team Providers Care Bookmobile Librarian Name Role Phone Reshma Rubio MD PCP [...] Advance Directives For more information, please contact: [facility] [address] [place] [address] Date Inactivated Comments Code Status Date Activated 05/01/2017 2:11 PM Full Code 04/25/2017 10:13 AM This code status was determined by: Patient
[2018-05-17] MEDS ORDERED: MORPHINE SULFATE INJ 4 MG/ML INJ IV PRN (22:00)
[2018-05-17] MEDS ORDERED: SODIUM CHLORIDE 0.9% 1000ML 1,000 ML IV SCH (22:00)
--- NOTE | 2018-05-17 22:35 | NUR ---
IV TO LEFT HAND TAKEN OUT,CATH TIP NOTED INTACT.DRESSING APPLIED.DRESSING TO RIGHT GROIN C/D/I.NO BLEEDING,NO S/S OF HEMATOMA NOTED.PEDAL PULSES PALPABLE.
--- NOTE | 2018-05-17 22:50 | NUR ---
PT LEFT UNIT VIA WHEELCHAIR AT THIS TIME IN STABLE CONDITION.FAMILY PRESENT AT THE TIME OF DISCHARGE.
--- NOTE | 2018-05-22 13:42 | Operative Report ---
DATE OF PROCEDURE: May 17, 2018 INDICATIONS: Coronary artery disease, abnormal stress test. PROCEDURES PERFORMED 1. Left heart catheterization, selective coronary angiography. 2. Selective cannulation of 2 venous and 1 arterial bypass conduits. 3. Deployment of right groin Mynx closure device. COMPLICATIONS: None. RECOMMENDATIONS: Medical therapy including external counterpulsations. Access was obtained in the right femoral artery. A 6-Macanese sheath was placed. Diagnostic coronary angiogram revealed patent left main. Left anterior descending artery had moderate 20% to 30% stenosis. The apical left anterior descending artery is completely occluded. Right coronary artery and circumflex arteries were occluded. Grade 3/4 collaterals filled the right posterior descending artery from the left anterior descending artery. Left internal mammary artery was occluded. Saphenous vein bypass grafts were occluded x2. No intervention was deemed necessary. Right groin repaired using Mynx closure device. Patient discharged home same day. Job#: [id number]
== END 2018-05-17 22:54 | disposition home or self-care (01) ==
LOC: CATH LAB 13:23 → INTOOBSV 20:19 → MED/SURG2 20:19
PROVIDERS: ADMIT Internal Medicine Interventional Cardiology; ATTEND Internal Medicine Interventional Cardiology
DX: I25.709 Atherosclerosis of coronary artery bypass graft(s), unspecified, with unspecified angina pectoris (principal); Z95.1 Presence of aortocoronary bypass graft; I10 Essential (primary) hypertension; E78.5 Hyperlipidemia, unspecified; Z82.49 Family history of ischemic heart disease and other diseases of the circulatory system
CPT/HCPCS: 36415; 80053; 80061; 85025; 85610; 93455; C1769; G0378; J2001; J2250; J7030; Q9967

== ENCOUNTER 2019-01-17 15:33 | Inpatient (IN) | payer MEDICARE ==
[~2019-01-17] VITALS: Ht 177.8 cm; Wt 123.5 kg
--- OUTSIDE RECORDS SUMMARY | 2019-01-17 15:37 | XMS REPORT | Clinical Summary ---
Author Author RODO [facility] Address Unknown Phone Unavailable Care Team Providers Care Armored Car Guard Name Role Phone Reshma Rubio MD PCP [...] 02/23/2018 - SCAN 7:30 AM CDT after 01/16/2018 Results * ARRYTHMIA IMPLANT REPORT - SCAN (02/23/2018 7:30 AM CDT) Narrative Performed At after 01/16/2018 Insurance Payer Benefit Subscriber ID Type Phone Address Plan / Group MEDICARE MEDICARE A xxxxxxxxxx Medicare B Advance Directives For more information, please contact: [facility] [address] [place] [address] Date Inactivated Comments Code Status Date Activated 05/01/2017 2:11 PM Full Code 04/25/2017 10:13 AM This code status was determined by: Patient
[2019-01-17 16:17] LABS: BASOPHILS % 0.2 % (0.0-1.0); EOSINOPHILS % 0.1 % (0.0-6.0); HEMATOCRIT 35.9 % (38.2-49.6); HEMOGLOBIN 11.9 g/dL (14.0-18.0); LYMPHOCYTES # (AUTO) 0.5 (1.0-3.2); LYMPHOCYTES % 5.1 % (18.0-39.1); MEAN CORPUSCULAR HEMOGLOBIN 28.1 pg (28-32); MEAN CORPUSCULAR HGB CONC 33.1 g/dL (31-35); MEAN CORPUSCULAR VOLUME 84.9 fL (81-99); MONOCYTES # (AUTO) 0.7 (0.2-0.8); MONOCYTES % 6.6 % (4.4-11.3); NEUTROPHILS # (AUTO) 8.9 (2.1-6.9); NEUTROPHILS % 87.7 % (38.7-80.0); PLATELET COUNT 122 x10e3/uL (140-360); RED BLOOD COUNT 4.23 x10e6/uL (4.3-5.7); RED CELL DISTRIBUTION WIDTH 14.8 % (11.7-14.4)
[2019-01-17 16:25] LABS: BILIRUBIN,URINE NEGATIVE (NEGATIVE); CLARITY,URINE SL CLOUDY (CLEAR); COLOR,URINE YELLOW (YELLOW); KETONES,URINE NEGATIVE (NEGATIVE); LEUKOCYTE ESTERASE ,URINE NEGATIVE (NEGATIVE); NITRITE,URINE NEGATIVE (NEGATIVE); PROTEIN,URINE DIPSTICK NEGATIVE (NEGATIVE); URINE UROBILINOGEN 1 mg/dL (0.2 - 1)
[2019-01-17 16:35] LABS: ALANINE AMINOTRANSFERASE 15 IU/L (0-55); ALBUMIN 3.7 g/dL (3.5-5.0); ALBUMIN/GLOBULIN RATIO 1.3 (0.8-2.0); ALKALINE PHOSPHATASE 57 IU/L (40-150); ANION GAP 14.9 mmol/L (8-16); BLOOD UREA NITROGEN 16 mg/dL (7-26); BUN/CREATININE RATIO 16 (6-25); CARBON DIOXIDE 22 mmol/L (22-29); CHLORIDE 103 mmol/L (98-107); CREATININE, SERUM 0.98 mg/dL (0.72-1.25); EST GLOMERULAR FILTRATION RATE > 60 ML/MIN (60-); GLUCOSE 122 mg/dL (74-118); LIPASE 19 U/L (8-78); POTASSIUM 3.9 mmol/L (3.5-5.1); SODIUM 136 mmol/L (136-145)
[2019-01-17 16:39] LABS: BACTERIA,URINE RARE /HPF; EPITHELIAL CELLS,URINE FEW /LPF; RBC,URINE 0-5 /HPF (0-5)
--- NOTE | 2019-01-17 16:45 | NUR ---
per dr cummings bolus x [address] pt in trendelenberg position for hypotension
[2019-01-17] MEDS: SODIUM CHLORIDE 0.9% 1000ML 1,000 ML IV SCH ×2 (16:46→18:41)
--- NOTE | 2019-01-17 16:46 | NUR ---
pt bolused and place in trendelenberg
[2019-01-17] MEDS ORDERED: SODIUM CHLORIDE 0.9% 1000ML 2,000 ML ONE (16:49)
[2019-01-17] MEDS ORDERED: SODIUM CHLORIDE 0.9% 1000ML 1,000 ML IV SCH (17:00)
[2019-01-17] MEDS ORDERED: IOPAMIDOL 370 MG/ML 200 ML INFUS..BTL INJ ONE (17:20)
[2019-01-17] MEDS ORDERED: SODIUM CHLORIDE 0.9% 50ML 50 ML ONE (17:20)
--- OUTSIDE RECORDS SUMMARY | 2019-01-17 18:59 | XMS REPORT | Clinical Summary ---
Author Author RODO [facility] Address Unknown Phone Unavailable Care Team Providers Care Acquisitions Analyst Name Role Phone Reshma Rubio MD PCP [...] Advance Directives For more information, please contact: [facility] [address] [place] [address] Date Inactivated Comments Code Status Date Activated 05/01/2017 2:11 PM Full Code 04/25/2017 10:13 AM This code status was determined by: Patient
--- NOTE | 2019-01-17 19:33 | Diagnostic Imaging Report ---
EXAM: CT Abdomen and Pelvis WITH contrast INDICATION: ^weakness ^[id number] ^1738 COMPARISON: None. TECHNIQUE: Abdomen and pelvis were scanned utilizing a multidetector helical scanner from the lung base to the pubic symphysis after administration of IV contrast. Coronal and sagittal reformations were obtained. Routine protocol was performed. Scan was performed when during portal venous phase. IV CONTRAST: 100 mL of Isovue-370 ORAL CONTRAST: Water RADIATION DOSE: Total DLP: 834.5 mGy*cm Estimated effective dose: (DLP x 0.015 x size factor) mSv COMPLICATIONS: None FINDINGS: LINES and TUBES: Partially visualized pacemaker leads in the right ureter and right ventricle. LOWER THORAX: Unremarkable HEPATOBILIARY: Few scattered tiny calcified granulomata throughout the liver. No focal hepatic lesions. No biliary ductal dilation. GALLBLADDER: No radio-opaque stones or sludge. No wall thickening. SPLEEN: No splenomegaly. Single splenic calcified granuloma. PANCREAS: No focal masses or ductal dilatation. ADRENALS: No adrenal nodules KIDNEYS/URETERS: Kidneys enhance symmetrically. No hydronephrosis. No cystic or solid mass lesions. No stones. GI TRACT: No abnormal distention, wall thickening, or evidence of bowel obstruction. Mildly scattered diverticulosis of the sigmoid colon without diverticulitis. Appendix is normal. PELVIC ORGANS/BLADDER: Unremarkable. LYMPH NODES: No lymphadenopathy. VESSELS: Unremarkable. PERITONEUM / RETROPERITONEUM: No free air or fluid. BONES: Unremarkable. SOFT TISSUES: Unremarkable. IMPRESSION: The mild diverticulosis of the sigmoid colon without diverticulitis. Signed by: Dr. Alessandra Fraga M.D. on 01/17/2019 7:30 PM
[2019-01-17 20:15] VITALS: BP 113/57
[2019-01-17] MEDS ORDERED: SODIUM CHLORIDE 0.9% 1000ML 1,000 ML IV ONE (20:45)
[2019-01-17 21:00] LABS: INR 1.27; PROTHROMBIN TIME 16.5 seconds (11.9-14.5)
[2019-01-17 22:00] VITALS: BP 113/57
[2019-01-17] MEDS ORDERED: BUMETANIDE2 MG PO (22:47)
[2019-01-18] VITALS: BP 99/54
--- NOTE | 2019-01-18 03:10 | NUR ---
Dr. Eleonora Garcia came and visited pt in room. MD aware of pt condition. MD informed patient and patient's plan for EGD today. Patient agreed to have EGD today.
[2019-01-18] MEDS ORDERED: PANTOPRAZOLE 40 MG 10ML VIAL IV STA (03:46)
[2019-01-18] MEDS: PANTOPRAZOL 40MG/SOD CHL 0.9% 250 ML IV SCH (04:45)
[2019-01-18 06:10] LABS: BASOPHILS % 0.2 % (0.0-1.0); EOSINOPHILS # (AUTO) 0.1 (0.0-0.4); EOSINOPHILS % 2.6 % (0.0-6.0); HEMATOCRIT 31.4 % (38.2-49.6); HEMOGLOBIN 10.4 g/dL (14.0-18.0); LYMPHOCYTES % 19.4 % (18.0-39.1); MEAN CORPUSCULAR HEMOGLOBIN 28.5 pg (28-32); MEAN CORPUSCULAR HGB CONC 33.1 g/dL (31-35); MONOCYTES # (AUTO) 0.7 (0.2-0.8); MONOCYTES % 12.3 % (4.4-11.3); NEUTROPHILS # (AUTO) 3.5 (2.1-6.9); NEUTROPHILS % 65.1 % (38.7-80.0); PLATELET COUNT 78 x10e3/uL (140-360); RED BLOOD COUNT 3.65 x10e6/uL (4.3-5.7); RED CELL DISTRIBUTION WIDTH 15.3 % (11.7-14.4)
[2019-01-18 06:26] LABS: ANION GAP 12.6 mmol/L (8-16); BLOOD UREA NITROGEN 11 mg/dL (7-26); BUN/CREATININE RATIO 14 (6-25); CALCIUM 8.1 mg/dL (8.4-10.2); CARBON DIOXIDE 22 mmol/L (22-29); CHLORIDE 110 mmol/L (98-107); CREATININE, SERUM 0.78 mg/dL (0.72-1.25); EST GLOMERULAR FILTRATION RATE > 60 ML/MIN (60-); GLUCOSE 89 mg/dL (74-118); POTASSIUM 3.6 mmol/L (3.5-5.1); SODIUM 141 mmol/L (136-145)
--- NOTE | 2019-01-18 06:32 | NUR ---
Spoke with Dr. Byrne to inform of new consult for Dr. Baer. Reason for consult: CAD. aware and will see pt this AM.
--- NOTE | 2019-01-18 07:30 | NUR ---
ptin bed resting no s/s discofort.
[2019-01-18 07:41] VITALS: BP 106/60
[2019-01-18 09:58] VITALS: BP 106/60
[2019-01-18] MEDS ORDERED: HYDRALAZINE HCL 20 MG/ML VIAL IV PRN (11:00)
[2019-01-18] MEDS ORDERED: ONDANSETRON HCL INJ 2MG/ML 2ML 2 MG/ML VIAL IV PRN (11:00)
[2019-01-18] MEDS ORDERED: ACETAMINOPHEN 325 MG TAB PO PRN (11:00)
--- NOTE | 2019-01-18 11:00 | NUR ---
PT TRANSPORTED TO [facility] VIA STRETCHER STABLE CONDITION
[2019-01-18 12:52] VITALS: BP 121/76
--- NOTE | 2019-01-18 12:56 | NUR ---
PT RETURNED TO ROOM AAOX3,DENIES PAIN IV INFUSING TO RT AC .VS WNL 121/76
--- NOTE | 2019-01-18 14:14 | Operative Report ---
DATE OF PROCEDURE: 01/18/2019 SURGEON: Sabino Garcia MD PROCEDURE: EGD with biopsies. INDICATIONS FOR EGD: History of melena, anemia. MEDICATIONS: The patient was done under MAC, please see anesthesiologist's note. PROCEDURE IN DETAIL: With the patient in left lateral decubitus position, the flexible fiberoptic Olympus gastroscope was introduced into the esophagus under direct visualization without any difficulty. The esophagus appeared to be within normal limits. The scope was then advanced with ease into the stomach. Mucosa overlying the antrum and the body revealed some patchy erythema and low-grade to moderate edema, and biopsies were obtained and sent to stain for H. pylori. An umbilicated polypoid lesion approximately 1 cm in size was noted in the mid antrum along the greater curvature and that was biopsied to rule out leiomyoma. The pylorus was of normal contour and shape, it was intubated with ease and the scope was advanced all the way to the second portion of the duodenum. Mucosa overlying the second portion appeared to be within normal limits. A minute ulcer was noted in the duodenal bulb without active bleeding or stigmata of recent hemorrhage. The scope was then withdrawn back into the stomach and retroflexed and mucosa overlying the fundus and the cardia appeared to be within normal limits. The scope was then straightened out, it was subsequently withdrawn, and the patient tolerated the procedure well. IMPRESSION: 1. Normal esophagus. 2. Gastritis, biopsied, biopsies sent to stain for Helicobacter pylori. 3. Rule out leiomyoma, antrum. 4. Minute ulcer bulb without active bleeding or stigmata of recent hemorrhage. PLAN: Follow up histology. Continue PPI therapy. The patient will need a colonoscopy as findings on the EGD not explain the patient's anemia or blood loss. MD VELVET Miranda/BARTOLOME /[id number] cc: Reshma Sarmiento MD
[2019-01-18] MEDS ORDERED: FENTANYL CITRATE/PF 100MCG/2 ML INJ ONE (14:44)
[2019-01-18] MEDS ORDERED: KETAMINE HCL INJ 50 MG/ML 10 ML VIAL ONE (14:44)
[2019-01-18] MEDS ORDERED: PROPOFOL IV EMULSION 10 MG/ML 50 ML VIAL ONE (15:08)
[2019-01-18 15:49] VITALS: BP 101/58
[2019-01-18] MEDS: METOPROLOL SUCCINATE 25 MG TAB XL PO SCH (17:14)
--- NOTE | 2019-01-18 17:37 | NUR ---
PT UP IN CHAIR ,DENIES PAIN,NO DISTRESS NOTED.
[2019-01-18 18:30] LABS: FERRITIN 71.47 ng/mL (21.81-274.66)
--- NOTE | 2019-01-18 19:20 | NUR ---
Patient visited in room during nursing rounds. Patient alert and oriented x3. No distress or discomfort noted. Pt on Full liquid diet at this time. On Protonix drip and IVF (NS at 50ml/hr). Family at bedside visiting. plan to stay with patient tonight. Up with standby assist prn. Call reddy within reach.
[2019-01-18 19:28] LABS: FOLATE 10.4 ng/mL (7.0-15.4)
[2019-01-18 20:00] VITALS: BP 99/57
[2019-01-18] MEDS: IRON SUCROSE 100 MG in SODIUM CHLORIDE 0.9% 100 ML 100 ML IV SCH (20:13)
[2019-01-19] VITALS (7 sets, daily range): BP systolic 107–140; BP diastolic 58–78
--- NOTE | 2019-01-19 01:21 | Consultation ---
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 His hemoglobin was noted to be 10.4. He underwent upper endoscopy, which did not reveal any source of bleeding. He currently is asymptomatic. Denies any chest pain, shortness of breath, palpitations, or syncope. REVIEW OF SYSTEMS: A 12-point review of systems was conducted, is negative except as stated above in the HPI. PAST MEDICAL HISTORY: As stated above in the HPI. PAST SURGICAL HISTORY: As stated above in the HPI. PAST FAMILY HISTORY: Noncontributory. SOCIAL HISTORY: No illicit drug, alcohol, or tobacco use. ALLERGIES: NO KNOWN DRUG ALLERGIES. MEDICATIONS: See medication reconciliation form. PHYSICAL EXAMINATION: VITAL SIGNS: Temperature is 98.1, heart rate is 60, respirations 18, blood pressure is 101/58, and oxygen saturation 96% on room air. GENERAL: Well appearing, well built, in no apparent distress. Alert and oriented x3. HEENT: Head is normocephalic and atraumatic. Eyes, the extraocular muscles are intact. Conjunctivae are clear. NECK: No JVD. No bruits. CARDIOVASCULAR: Regular rate and rhythm. LUNGS: Clear to auscultation. ABDOMEN: Soft, nontender, and nondistended. EXTREMITIES: No clubbing, cyanosis, or edema. LABORATORY DATA: Reviewed. CARDIOVASCULAR MEDICATIONS: Reviewed. IMPRESSION: 1. Gastrointestinal bleed. 2. Coronary artery disease, status post bypass surgery and intervention. 3. Congestive heart failure. 4. Hypertension. 5. Hyperlipidemia. 6. Diabetes mellitus. 7. Obesity. RECOMMENDATIONS: Resume home antihypertensives. He is asymptomatic from a cardiovascular standpoint. Continue to monitor on telemetry. No need for pacemaker interrogation. We will continue to follow along with you. DO SHAUN Freedman/MODL /[id number]
[2019-01-19] MEDS: PANTOPRAZOL 40MG/SOD CHL 0.9% 250 ML IV SCH (03:20)
[2019-01-19 04:15] LABS: BASOPHILS % 0.5 % (0.0-1.0); EOSINOPHILS % 0.8 % (0.0-6.0); HEMATOCRIT 31.4 % (38.2-49.6); HEMOGLOBIN 10.2 g/dL (14.0-18.0); LYMPHOCYTES # (AUTO) 1.4 (1.0-3.2); LYMPHOCYTES % 35.5 % (18.0-39.1); MEAN CORPUSCULAR HEMOGLOBIN 28.3 pg (28-32); MEAN CORPUSCULAR HGB CONC 32.5 g/dL (31-35); MONOCYTES # (AUTO) 0.5 (0.2-0.8); MONOCYTES % 12.3 % (4.4-11.3); NEUTROPHILS % 50.6 % (38.7-80.0); PLATELET COUNT 87 x10e3/uL (140-360); RED BLOOD COUNT 3.61 x10e6/uL (4.3-5.7); RED CELL DISTRIBUTION WIDTH 15.1 % (11.7-14.4)
[2019-01-19 04:50] LABS: ANION GAP 12.2 mmol/L (8-16); CALCIUM 8.5 mg/dL (8.4-10.2); CARBON DIOXIDE 26 mmol/L (22-29); CHLORIDE 111 mmol/L (98-107); CHOL/HDL RATIO 3.1 (3.9-4.7); CHOLESTEROL 91 MD/DL (0-199); CREATININE, SERUM 0.78 mg/dL (0.72-1.25); EST GLOMERULAR FILTRATION RATE > 60 ML/MIN (60-); GLUCOSE 94 mg/dL (74-118); HDL CHOLESTEROL 29 MG/DL (40-60); LDL CHOLESTEROL 35 MG/DL (60-130); MAGNESIUM 2.2 MG/DL (1.3-2.1); POTASSIUM 4.2 mmol/L (3.5-5.1); SODIUM 145 mmol/L (136-145); TRIGLYCERIDES 136 MG/DL (0-149)
[2019-01-19 04:58] LABS: B-TYPE NATRIURETIC PEPTIDE2 538.7 pg/mL (0-100)
[2019-01-19 05:16] LABS: THYROID STIMULATING HORMONE 2.548 uIU/mL (0.350-4.940)
[2019-01-19 05:22] LABS: BLOOD UREA NITROGEN 7 mg/dL (7-26); BUN/CREATININE RATIO 9 (6-25)
[2019-01-19] MEDS: METOPROLOL SUCCINATE 25 MG TAB XL PO SCH ×2 (09:00→17:00)
[2019-01-19] MEDS ORDERED: ATORVASTATIN 40 MG TAB PO SCH (09:00)
[2019-01-19] MEDS ORDERED: MELATONIN 5 MG TABLET PO PRN (10:00)
[2019-01-19] MEDS ORDERED: ACETAMINOPHEN/CODEINE 300MG - 30MG TAB PO PRN (10:00)
[2019-01-19] MEDS ORDERED: ACETAMINOPHEN 325 MG TAB PO PRN (10:00)
[2019-01-19] MEDS ORDERED: FUROSEMIDE INJ 10 MG/ML 4 ML VIAL IV ONE (10:30)
[2019-01-19] MEDS ORDERED: PEG (High)/E-LYTE SOLN 4,000 ML BTL PO ONE (11:45)
--- NOTE | 2019-01-19 13:38 | Progress Note ---
DATE: 01/19/2019 Cardiology Progress Note SUBJECTIVE: The patient is feeling well. Denies any chest pain or shortness of breath. OBJECTIVE: VITAL SIGNS: Temperature is 98.9, heart rate is 62, respirations are 18, blood pressure is 108/65, ox saturation 98% on room air. GENERAL: Well appearing, no apparent distress. CARDIOVASCULAR: Regular rate and rhythm. LUNGS: Clear to auscultation. ABDOMEN: Soft, nontender, nondistended. EXTREMITIES: Trace edema. LABORATORY DATA: Reviewed. Hemoglobin 10.2. Creatinine 0.78. CARDIOVASCULAR MEDICATIONS: Reviewed. IMPRESSION: 1. Gastrointestinal bleed. 2. Coronary artery disease status post bypass surgery and percutaneous intervention. 3. Congestive heart failure. 4. Pacemaker. 5. Hypertension. 6. Hyperlipidemia. 7. Diabetes mellitus. RECOMMENDATIONS: Continue current cardiovascular medications including his optimal medical therapy for his heart failure. He is asymptomatic from a cardiovascular standpoint. Continue to monitor closely on telemetry. GI bleed workup in progress. Plans for colonoscopy. He may proceed with an acceptable cardiovascular risk. Zander Byrne DO BM/MODL /[id number]
--- NOTE | 2019-01-19 17:52 | NUR ---
PT UP IN CHAIR ,PREP STARTED FOR COLONOSCOPY,DENIES PAIN
--- NOTE | 2019-01-19 19:20 | NUR ---
Patient visited in room during nursing rounds. Patient alert and oriented x3. No distress or discomfort noted. Pt on Full liquid diet at this time. Pt NPO at midnight and just finished drinking golytely in prep for Colonoscopy tomorrow (01/20/19). Family at bedside visiting. plan to stay with patient tonight. Up with standby assist prn. Call reddy within reach.
[2019-01-19] MEDS: IRON SUCROSE 100 MG in SODIUM CHLORIDE 0.9% 100 ML 100 ML IV SCH (19:40)
--- NOTE | 2019-01-19 20:00 | NUR ---
Patient's 8th bowel movement episode. Observed stool to be loose clear yellow in color.
[2019-01-20] VITALS (9 sets, daily range): BP systolic 104–145; BP diastolic 62–75
[2019-01-20 03:38] LABS: BASOPHILS % 0.2 % (0.0-1.0); EOSINOPHILS # (AUTO) 0.1 (0.0-0.4); EOSINOPHILS % 1.2 % (0.0-6.0); HEMATOCRIT 32.6 % (38.2-49.6); HEMOGLOBIN 10.7 g/dL (14.0-18.0); LYMPHOCYTES # (AUTO) 1.4 (1.0-3.2); LYMPHOCYTES % 35.1 % (18.0-39.1); MEAN CORPUSCULAR HEMOGLOBIN 27.9 pg (28-32); MEAN CORPUSCULAR HGB CONC 32.8 g/dL (31-35); MEAN CORPUSCULAR VOLUME 84.9 fL (81-99); MONOCYTES # (AUTO) 0.4 (0.2-0.8); MONOCYTES % 10.9 % (4.4-11.3); NEUTROPHILS # (AUTO) 2.1 (2.1-6.9); NEUTROPHILS % 52.1 % (38.7-80.0); PLATELET COUNT 102 x10e3/uL (140-360); RED BLOOD COUNT 3.84 x10e6/uL (4.3-5.7); RED CELL DISTRIBUTION WIDTH 14.8 % (11.7-14.4)
[2019-01-20 03:56] LABS: ANION GAP 13.4 mmol/L (8-16); BLOOD UREA NITROGEN 6 mg/dL (7-26); BUN/CREATININE RATIO 8 (6-25); CALCIUM 8.4 mg/dL (8.4-10.2); CARBON DIOXIDE 25 mmol/L (22-29); CHLORIDE 108 mmol/L (98-107); CREATININE, SERUM 0.76 mg/dL (0.72-1.25); EST GLOMERULAR FILTRATION RATE > 60 ML/MIN (60-); GLUCOSE 93 mg/dL (74-118); POTASSIUM 3.4 mmol/L (3.5-5.1); SODIUM 143 mmol/L (136-145)
[2019-01-20] MEDS ORDERED: DOCUSATE SODIU100 MG PO (09:26)
[2019-01-20] MEDS ORDERED: FERROUS SULFAT325 MG PO (09:26)
[2019-01-20] MEDS ORDERED: ASCORBIC ACID500 MG PO (09:26)
[2019-01-20] MEDS ORDERED: PANTOPRAZOLE SO40 MG PO (09:26)
[2019-01-20] MEDS ORDERED: POTASSIUM CHLORIDE 20MEQ/100ML 100 ML IV ONE (09:30)
[2019-01-20] MEDS: CYANOCOBALAMIN INJ 1,000 MCG/ML VIAL IM SCH (10:32)
[2019-01-20] MEDS: PANTOPRAZOLE 40 MG 10ML VIAL IV SCH (10:32)
[2019-01-20] MEDS: METOPROLOL SUCCINATE 25 MG TAB XL PO SCH ×2 (10:34→16:43)
[2019-01-20] MEDS ORDERED: PROPOFOL IV EMULSION 10 MG/ML 20 ML VIAL ONE (14:44)
[2019-01-20] MEDS ORDERED: PHENYLEPHRINE HCL 1% 10 MG/ML VIAL ONE (14:44)
[2019-01-20] MEDS ORDERED: FENTANYL CITRATE/PF 100MCG/2 ML INJ ONE (18:27)
[2019-01-20] MEDS ORDERED: MIDAZOLAM HCL 2 MG/2 ML VIAL ONE (18:27)
--- NOTE | 2019-01-20 19:00 | NUR ---
patient received awake, alert, sitting up in chair in room. no c/o pain noted. pm assessment complete. family noted at the bedside. patient\family instructed to call for assistance when needed.
[2019-01-20] MEDS: IRON SUCROSE 100 MG in SODIUM CHLORIDE 0.9% 100 ML 100 ML IV SCH (20:00)
--- NOTE | 2019-01-20 20:26 | Operative Report ---
DATE OF PROCEDURE: 01/20/2019 SURGEON: Sabino Garcia MD PROCEDURE: Colonoscopy with polypectomy. INDICATION FOR COLONOSCOPY: Anemia. MEDICATION: The patient was done under MAC, please see anesthesiologist's note. PROCEDURE IN DETAIL: With the patient in left lateral decubitus position, a flexible fiberoptic Olympus colonoscope was inserted into the rectum with ease and advanced all the way to the cecum. Diverticular disease was noted to be scattered throughout, but more prominent in the left colon. The mucosa overlying the cecum, ascending colon, transverse colon, and descending colon other than for diverticular disease was grossly within normal limits. One polyp was hot biopsied from the sigmoid. The rectum grossly appeared to be within normal limits. The scope was then retroflexed into the distal rectum and small internal hemorrhoids were noted, none of which was actively bleeding. The scope was then straightened out, it was subsequently withdrawn, and the patient tolerated the procedure well. IMPRESSION: 1. Pandiverticulosis. 2. Sigmoid colon polyp, hot biopsied. 3. Internal hemorrhoids, none actively bleeding. PLAN: Follow up histology. Initiate high-fiber, low-fat diet. Initiate high-fiber supplement. The patient will need a GI bleed scan and if negative, a small bowel series and possibly an endo capsule will need to be carried out. MD VELVET Miranda/BARTOLOME /[id number] cc: Reshma Sarmiento MD
--- NOTE | 2019-01-20 20:57 | NUR ---
patient to [facility] med via wheelchair for gi bleed scan at this time.
[2019-01-20] MEDS ORDERED: ATORVASTATIN 40 MG TAB PO SCH ×2 (21:00)
--- NOTE | 2019-01-20 23:00 | Diagnostic Imaging Report ---
Tagged-RBC GI Bleed Study Clinical information: 73-year-old male with blood in stool; anemia Discussion: The patient's own red blood cells were labeled with 25 mCi of technetium-99m pertechnetate using the in vitro method (UltraTag). Dynamic images of the abdomen were obtained through 60 minutes. Distribution of tracer activity appears physiologic throughout the abdomen. No abnormal accumulation of tracer is seen within the gastrointestinal lumen. Impression: No scan evidence of active gastrointestinal bleeding at this time. Signed by: Dr. Penny Prakash M.D. on 01/20/2019 10:56 PM
--- NOTE | 2019-01-21 00:20 | NUR ---
patient back in room from gi bleed scan at this time.
[2019-01-21 03:57] VITALS: BP 116/67
--- NOTE | 2019-01-21 05:08 | Progress Note ---
DATE: 01/20/2019 Cardiology Progress Note SUBJECTIVE: The patient denies chest pain or shortness of breath. OBJECTIVE: VITAL SIGNS: Temperature 96.4 degrees, pulse 63, respiratory rate 17, blood pressure 114/62, oxygen saturation 98% on room air. GENERAL: Awake and alert, in no acute distress. LUNGS: Clear to auscultation bilaterally. No wheezes or crackles. CARDIAC: Normal rate and regular rhythm. No murmur. Normal S1 and S2. ABDOMEN: Soft, nontender. EXTREMITIES: No edema. CARDIAC MEDICATIONS: Atorvastatin 80 mg p.o. at bedtime, metoprolol succinate 25 mg p.o. b.i.d. LABORATORY DATA: WBC 4.05, hemoglobin 10.7, hematocrit 32.6, and platelets 102. Sodium 143, potassium 3.4, chloride 108, CO2 of 25, BUN 6, creatinine 0.76. BNP 257. TELEMETRY: A-paced. IMPRESSION: 1. Gastrointestinal bleeding. 2. Coronary artery disease, status post bypass and PCI. 3. Congestive heart failure. 4. Pacemaker. 5. Hypertension. 6. Hyperlipidemia. 7. Diabetes mellitus. RECOMMENDATIONS: Continue current cardiac medications. Continue metoprolol succinate. He will need to be restarted on Entresto once his blood pressure improves. We will monitor closely. The patient is without any cardiovascular symptoms at this time. Monitor the patient on telemetry. GI evaluation for source of bleeding if ongoing. No further cardiac evaluation is indicated at this time. Thank you for this consult. We will continue to follow. Maricruz Souza MD ABS/MODL /[id number]
[2019-01-21 06:19] LABS: BASOPHILS % 0.3 % (0.0-1.0); EOSINOPHILS % 0.6 % (0.0-6.0); HEMATOCRIT 32.1 % (38.2-49.6); HEMOGLOBIN 10.3 g/dL (14.0-18.0); LYMPHOCYTES # (AUTO) 1.3 (1.0-3.2); MEAN CORPUSCULAR HEMOGLOBIN 27.8 pg (28-32); MEAN CORPUSCULAR HGB CONC 32.1 g/dL (31-35); MEAN CORPUSCULAR VOLUME 86.8 fL (81-99); MONOCYTES # (AUTO) 0.3 (0.2-0.8); MONOCYTES % 9.8 % (4.4-11.3); NEUTROPHILS # (AUTO) 1.6 (2.1-6.9); PLATELET COUNT 80 x10e3/uL (140-360); RED CELL DISTRIBUTION WIDTH 14.8 % (11.7-14.4)
[2019-01-21 06:42] LABS: ANION GAP 9.8 mmol/L (8-16); BLOOD UREA NITROGEN 7 mg/dL (7-26); BUN/CREATININE RATIO 9 (6-25); CALCIUM 8.7 mg/dL (8.4-10.2); CARBON DIOXIDE 29 mmol/L (22-29); CHLORIDE 107 mmol/L (98-107); EST GLOMERULAR FILTRATION RATE > 60 ML/MIN (60-); GLUCOSE 92 mg/dL (74-118); POTASSIUM 3.8 mmol/L (3.5-5.1); SODIUM 142 mmol/L (136-145)
[2019-01-21 08:00] VITALS: BP 110/65
--- NOTE | 2019-01-21 08:18 | NUR ---
PATIENT IN STABLE CONDITION WITH NO S/S OF RESPIRATORY DISTRESS. NO PAIN VOICED. TELEMETRY APPLIED. PRESENT IN ROOM. CALL LIGHT IS WITHIN REACH, PATIENT INSTRUCTED TO CALL FOR ASSISTANCE NEEDED.
[2019-01-21] MEDS: CYANOCOBALAMIN INJ 1,000 MCG/ML VIAL IM SCH (08:58)
[2019-01-21] MEDS: PANTOPRAZOLE 40 MG 10ML VIAL IV SCH (08:58)
[2019-01-21] MEDS: METOPROLOL SUCCINATE 25 MG TAB XL PO SCH ×2 (08:59→16:24)
[2019-01-21 10:21] VITALS: BP 110/65
[2019-01-21 11:54] VITALS: BP 135/91
[2019-01-21 16:00] VITALS: BP 110/69
--- NOTE | 2019-01-21 17:35 | NUR ---
RECEIVED PT IN BED AOX3 .PT IS WAITING FOR DISCHARGE NO ACUTE DISTRESS NOTED .FAMILY AT THE BEDSIDE
--- NOTE | 2019-01-21 19:18 | NUR ---
PATIENT IN STABLE CONDITION WITH NO S/S OF RESPIRATORY DISTRESS. NO PAIN VOICED. TELEMETRY APPLIED. AND OTHER FAMILY MEMBERS PRESENT IN ROOM. CALL LIGHT IS WITHIN REACH, PATIENT INSTRUCTED TO CALL FOR ASSISTANCE NEEDED. BEDSIDE REPORT GIVEN TO ONCOMING NURSE.
[2019-01-21 19:50] VITALS: BP 121/86
--- NOTE | 2019-01-21 20:40 | NUR ---
PT IS DISCHARGE TO HOME .PT HAS GONE WITH THE FAMILY MEMBERS HAS TAKEN THE PT .NO ACUTE DISTRESS NOTED
--- NOTE | 2019-01-22 03:54 | Progress Note ---
DATE: 01/21/2019 Cardiology Progress Note SUBJECTIVE: The patient denies chest pain or shortness of breath. OBJECTIVE: VITAL SIGNS: Temperature 96.1 degrees, pulse 57, respiratory rate 19, blood pressure 110/65, oxygen saturation 97% on room air. GENERAL: Awake, alert, in no acute distress. LUNGS: Clear to auscultation bilaterally. No wheezes or crackles. CARDIOVASCULAR: Normal rate and regular rhythm. No murmur. Normal S1, S2. ABDOMEN: Soft, nontender. EXTREMITIES: No edema. CARDIAC MEDICATIONS: Metoprolol tartrate 25 mg p.o. b.i.d. and atorvastatin 80 mg p.o. at bedtime. LABORATORY DATA: WBC 3.26, hemoglobin 10.3, hematocrit 32.1, platelets 80. Sodium 142, potassium 3.8, chloride 107, CO2 is 29, BUN 7, creatinine 0.8, BNP 256. TELEMETRY: AV paced. IMPRESSION: 1. Gastrointestinal bleeding. 2. Coronary artery disease status post bypass and PCI. 3. Congestive heart failure. 4. Pacemaker. 5. Hypertension. 6. Hyperlipidemia. 7. Diabetes mellitus. RECOMMENDATIONS: Continue current cardiac medications. Continue metoprolol succinate. Resume Entresto. He is currently without any cardiovascular symptoms. No further cardiac evaluation is indicated at this time. Monitor patient on telemetry. Refer to GI regarding evaluation of GI bleeding. If agreeable with GI, recommend resuming aspirin. Thank you for this consult, we will continue to follow. Maricruz Souza MD ABS/MODL /[id number]
--- NOTE | 2019-01-22 16:52 | Discharge Summary ---
DISCHARGE DIAGNOSES: Acute blood loss anemia secondary to gastrointestinal bleed, hyperlipidemia, history of CAD with stents, hypertension, obesity with a BMI of 39.1. DISCHARGE DIAGNOSES: Acute blood loss anemia secondary to gastrointestinal bleed, hyperlipidemia, history of CAD with stents, hypertension, obesity with a BMI of 39.1. Hypertension with CAD and diverticulosis, sigmoid colon polyp, internal hemorrhoids, gastritis. HISTORY: The patient has a history of hypertension, hyperlipidemia, CAD, non STEMI, second-degree AV block. SURGICAL HISTORY: CABG x3 vessel in 2002, pacemaker in 2017. FAMILY HISTORY: The patient's mom had cancer. SOCIAL HISTORY: Occasional alcohol use. HOSPITAL COURSE: A 73-year-old male complains of blood in stools on Sunday followed by black stools on Sunday. He denies nausea, vomiting, diarrhea, and fever. His family brought him to the ER when his blood pressure dropped below 100. On admission, CT of the abdomen showed mild diverticulosis of the sigmoid colon without diverticulitis. GI was consulted. The patient had an EGD, which showed normal esophagus, gastritis, rule out leiomyoma, minute ulcer bulb without active bleeding or stigmata of recent hemorrhage. The patient was started on PPI and since EGD did not explain the bleeding, the patient also had a colonoscopy, which showed pandiverticulosis, sigmoid colon polyp, and internal hemorrhoids, none actively bleeding. The hemoglobin remained stable, but GI scan was also ordered, which showed no evidence of GI bleed. So, the patient will discharge home with new prescriptions for Protonix, iron, vitamin C, and Colace. He will follow up with primary care in 1 to 2 weeks and GI as discussed. Hemoglobin has remained stable as well as vitals. The patient is afebrile. The patient and family understand discharge instructions and agrees to plan. Dictated by Mylene Foley NP MD JACOB Carpio/BARTOLOME /[id number]
== END 2019-01-21 20:15 | disposition home or self-care (01) | DRG 378 ==
LOC: ER 15:33 → ERHOLD 17:01 → MED/SURG3 19:58
PROVIDERS: ADMIT Internal Medicine; ATTEND Internal Medicine
PROC: 0DB78ZX Excision of Stomach, Pylorus, Via Natural or Artificial Opening Endoscopic, Diagnostic (ICD-10-PCS; 2019-01-18)
PROC: 0DBN8ZZ Excision of Sigmoid Colon, Via Natural or Artificial Opening Endoscopic (ICD-10-PCS; principal; 2019-01-20 13:40)
DX: K57.31 Diverticulosis of large intestine without perforation or abscess with bleeding (principal); D62 Acute posthemorrhagic anemia; I50.20 Unspecified systolic (congestive) heart failure; E78.5 Hyperlipidemia, unspecified; Z68.39 Body mass index [BMI] 39.0-39.9, adult; I25.10 Atherosclerotic heart disease of native coronary artery without angina pectoris; Z95.1 Presence of aortocoronary bypass graft; E11.9 Type 2 diabetes mellitus without complications; E66.9 Obesity, unspecified; Z95.5 Presence of coronary angioplasty implant and graft; K63.5 Polyp of colon; K26.9 Duodenal ulcer, unspecified as acute or chronic, without hemorrhage or perforation; K29.70 Gastritis, unspecified, without bleeding; K64.8 Other hemorrhoids; Z95.0 Presence of cardiac pacemaker; Z79.4 Long term (current) use of insulin; I11.0 Hypertensive heart disease with heart failure; I50.9 Heart failure, unspecified
CPT/HCPCS: 36415; 43239; 45378; 45384; 74177; 78278; 80048; 80053; 80061; 81001; 82607; 82728; 82746; 83036; 83540; 83690; 83735; 83880; 84443; 84466; 85025; 85045; 85610; 88305; 88312; 93005; 93306; 99284; A9512; J1756; J1940; J2250; J2370; J3010; J3420; J3480; J7030; Q9967

== ENCOUNTER 2021-04-20 12:59 | Inpatient (IN) | payer MEDICARE ==
[~2021-04-20] VITALS: Ht 180.3 cm; Wt 122.5 kg
[~2021-04-20 12:59] MED LIST changes: +ASCORBIC ACID500 MG PO; +BUMETANIDE2 MG PO; +DOCUSATE SODIU100 MG PO; +FERROUS SULFAT325 MG PO; +PANTOPRAZOLE SO40 MG PO
[2021-04-20 14:27] LABS: BASOPHILS % 0.4 % (0.0-1.0); EOSINOPHILS % 0.4 % (0.0-6.0); HEMATOCRIT 33.8 % (38.2-49.6); HEMOGLOBIN 10.8 g/dL (14.0-18.0); LYMPHOCYTES # (AUTO) 1.3 (1.0-3.2); LYMPHOCYTES % 23.7 % (18.0-39.1); MEAN CORPUSCULAR HEMOGLOBIN 26.2 pg (28-32); MONOCYTES # (AUTO) 0.5 (0.2-0.8); MONOCYTES % 9.5 % (4.4-11.3); NEUTROPHILS # (AUTO) 3.6 (2.1-6.9); NEUTROPHILS % 65.6 % (38.7-80.0); PLATELET COUNT 111 x10e3/uL (140-360); RED BLOOD COUNT 4.12 x10e6/uL (4.3-5.7); RED CELL DISTRIBUTION WIDTH 15.8 % (11.7-14.4)
[2021-04-20 14:32] LABS: INR 1.27; PROTHROMBIN TIME 16.9 seconds (11.9-14.5)
[2021-04-20 14:33] LABS: PARTIAL THROMBOPLASTIN TIME 34.6 seconds (23.8-35.5)
[2021-04-20 14:44] LABS: ALBUMIN 3.8 g/dL (3.5-5.0); ALBUMIN/GLOBULIN RATIO 1.4 (0.8-2.0); ANION GAP 12.7 mmol/L (8-16); CALCIUM 8.5 mg/dL (8.4-10.2); CREATININE, SERUM 0.84 mg/dL (0.72-1.25); POTASSIUM 3.7 mmol/L (3.5-5.1)
[2021-04-20 14:52] LABS: CREATINE KINASE MB 0.7 ng/mL (0-5.0)
[2021-04-21] MEDS ORDERED: BENZONATATE 100 MG CAP PO PRN (00:15)
[2021-04-21] MEDS ORDERED: ONDANSETRON HCL INJ 2MG/ML 2ML 2 MG/ML VIAL IV PRN (00:15)
[2021-04-21] MEDS ORDERED: DEXTROSE 50% SYRINGE 50 ML IV PRN (00:15)
[2021-04-21] MEDS ORDERED: SIMETHICONE 80 MG CHEW PO PRN (00:15)
[2021-04-21] MEDS ORDERED: POTASSIUM CHLORIDE 20 MEQ TAB CR PO PRN (00:15)
[2021-04-21] MEDS ORDERED: ACETAMINOPHEN 325 MG TAB PO PRN (00:15)
[2021-04-21] MEDS ORDERED: ALBUTEROL/IPRATROPIUM 3 ML NEB NEB PRN (00:15)
[2021-04-21] MEDS ORDERED: DOCUSATE SODIUM 100 MG CAP PO PRN (00:15)
[2021-04-21] MEDS ORDERED: DIPHENHYDRAMINE HCL 25 MG CAP PO PRN (00:15)
[2021-04-21] MEDS ORDERED: HYDRALAZINE HCL 20 MG/ML VIAL IV PRN (00:15)
[2021-04-21] MEDS ORDERED: MELATONIN 5 MG TABLET PO PRN (00:15)
[2021-04-21] MEDS ORDERED: TRAMADOL HCL 50 MG TAB PO PRN (00:15)
[2021-04-21] MEDS ORDERED: LIDOCAINE 4% PATCH TP PRN (00:15)
[2021-04-21 06:10] LABS: BASOPHILS % 0.3 % (0.0-1.0); EOSINOPHILS % 0.5 % (0.0-6.0); HEMATOCRIT 32.6 % (38.2-49.6); HEMOGLOBIN 10.3 g/dL (14.0-18.0); LYMPHOCYTES # (AUTO) 1.7 (1.0-3.2); LYMPHOCYTES % 41.7 % (18.0-39.1); MEAN CORPUSCULAR HEMOGLOBIN 26.1 pg (28-32); MEAN CORPUSCULAR HGB CONC 31.6 g/dL (31-35); MEAN CORPUSCULAR VOLUME 82.7 fL (81-99); MONOCYTES # (AUTO) 0.5 (0.2-0.8); MONOCYTES % 12.1 % (4.4-11.3); NEUTROPHILS # (AUTO) 1.8 (2.1-6.9); NEUTROPHILS % 44.4 % (38.7-80.0); RED BLOOD COUNT 3.94 x10e6/uL (4.3-5.7); RED CELL DISTRIBUTION WIDTH 15.7 % (11.7-14.4)
[2021-04-21 06:12] LABS: PLATELET COUNT 98 x10e3/uL (140-360)
[2021-04-21 06:27] LABS: ANION GAP 12.8 mmol/L (8-16); CALCIUM 8.8 mg/dL (8.4-10.2); CREATININE, SERUM 0.77 mg/dL (0.72-1.25); POTASSIUM 3.8 mmol/L (3.5-5.1)
[2021-04-21] MEDS: PANTOPRAZOLE SOD 40 MG TABEC PO SCH (07:39)
[2021-04-21 12:56] VITALS: BP 126/84
[2021-04-21 13:03] VITALS: BP 126/84
[2021-04-21 13:12] VITALS: BP 126/84
[2021-04-21 15:53] VITALS: BP 143/87
[2021-04-21] MEDS ORDERED: METOPROLOL SUCCINATE 25 MG TAB XL PO SCH (17:00)
[2021-04-21] MEDS ORDERED: ENTRESTO PO SCH (17:00)
[2021-04-21] MEDS: VALSARTAN/SACUBITRIL 24MG/26MG 1 EA TAB PO SCH (17:33)
[2021-04-21 20:07] VITALS: BP 111/80
[2021-04-21 21:00] VITALS: BP 111/80
[2021-04-21 23:13] LABS: % IRON SATURATION 6 % (15-50); IRON 24 ug/dL (65-175); TOTAL IRON BINDING CAPACITY 384 ug/dL (261-478); TRANSFERRIN 274 mg/dL (174-364)
[2021-04-22 00:23] VITALS: BP 138/90
[2021-04-22] MEDS ORDERED: CYANOCOBALAMIN INJ 1,000 MCG/ML VIAL IM ONE (00:30)
[2021-04-22] MEDS ORDERED: FOLIC ACID 1 MG TAB PO ONE (00:30)
[2021-04-22 05:36] VITALS: BP 107/72
[2021-04-22 06:05] LABS: BASOPHILS % 0.7 % (0.0-1.0); HEMATOCRIT 31.6 % (38.2-49.6); HEMOGLOBIN 9.7 g/dL (14.0-18.0); LYMPHOCYTES # (AUTO) 1.6 (1.0-3.2); LYMPHOCYTES % 50.8 % (18.0-39.1); MEAN CORPUSCULAR HEMOGLOBIN 25.7 pg (28-32); MEAN CORPUSCULAR HGB CONC 30.7 g/dL (31-35); MEAN CORPUSCULAR VOLUME 83.8 fL (81-99); MONOCYTES # (AUTO) 0.4 (0.2-0.8); MONOCYTES % 12.1 % (4.4-11.3); NEUTROPHILS # (AUTO) 1.1 (2.1-6.9); NEUTROPHILS % 35.1 % (38.7-80.0); PLATELET COUNT 92 x10e3/uL (140-360); RED BLOOD COUNT 3.77 x10e6/uL (4.3-5.7); RED CELL DISTRIBUTION WIDTH 15.7 % (11.7-14.4)
[2021-04-22 06:23] LABS: ANION GAP 12.7 mmol/L (8-16); CALCIUM 8.7 mg/dL (8.4-10.2); CREATININE, SERUM 0.76 mg/dL (0.72-1.25); POTASSIUM 3.7 mmol/L (3.5-5.1)
[2021-04-22] MEDS ORDERED: PANTOPRAZOLE SOD 40 MG TABEC PO SCH (07:30)
[2021-04-22 08:00] VITALS: BP 134/75
[2021-04-22 08:19] VITALS: BP 134/75
[2021-04-22] MEDS ORDERED: FOLIC ACID 1 MG TAB PO SCH (09:00)
[2021-04-22] MEDS ORDERED: IRON SUCROSE 100 MG in SODIUM CHLORIDE 0.9% 100 ML 100 ML IV SCH (09:00)
[2021-04-22] MEDS ORDERED: ATORVASTATIN 40 MG TAB PO SCH (09:00)
[2021-04-22] MEDS ORDERED: CYANOCOBALAMIN INJ 1,000 MCG/ML VIAL IM SCH (09:00)
[2021-04-22] MEDS ORDERED: HYDROCORTISONE ACETATE 25 MG/SUPP.RECT SUPP RC SCH (09:00)
[2021-04-22] MEDS: PANTOPRAZOLE SOD 40 MG TABEC PO SCH (09:43)
[2021-04-22] MEDS: VALSARTAN/SACUBITRIL 24MG/26MG 1 EA TAB PO SCH (09:43)
[2021-04-22] MEDS ORDERED: SODIUM CHLORIDE 0.9% 100 ML ONE (10:12)
[2021-04-22 12:00] VITALS: BP 97/68
[2021-04-22 13:44] VITALS: BP 117/74
== END 2021-04-22 15:28 | disposition home or self-care (01) | DRG 379 ==
LOC: ER 15:51 → ERHOLD 20:02 → MED/SURG3 04-21 12:28
PROVIDERS: ADMIT Internal Medicine; ATTEND Internal Medicine
DX: K62.5 Hemorrhage of anus and rectum (principal); I48.91 Unspecified atrial fibrillation; Z79.01 Long term (current) use of anticoagulants; I10 Essential (primary) hypertension; I25.10 Atherosclerotic heart disease of native coronary artery without angina pectoris; Z95.1 Presence of aortocoronary bypass graft; K59.00 Constipation, unspecified; D50.9 Iron deficiency anemia, unspecified; D52.9 Folate deficiency anemia, unspecified; D51.3 Other dietary vitamin B12 deficiency anemia; T45.515A Adverse effect of anticoagulants, initial encounter; Z20.822 Contact with and (suspected) exposure to COVID-19
CPT/HCPCS: 36415; 80048; 80053; 82550; 82553; 82607; 82746; 83540; 84466; 84484; 85025; 85045; 85610; 85730; 93005; 94799; 99284; J1756; J3420; J7050; U0002